=== PATIENT | male | born 1950 | race Caucasian/White ===

== ENCOUNTER 2024-08-03 23:15 | Inpatient (IN) | payer MEDICARE, SELFPAY ==
[2024-08-03 16:10] LABS: % Basophils 0.5 % (0-2); % Eosinophils 2.1 % (0-6); % Immature Granulocytes 0.7 % (0-0.5); % Lymphocytes 18.6 % (20.5-51.1); % Neutrophils 65.1 % (42.2-75.2); Absolute Eosinophils 0.1 10^3/uL (0-0.7); Absolute Lymphocytes 0.8 10^3/uL (1.2-3.4); Absolute Monocytes 0.6 10^3/uL (0.1-0.6); Absolute Neutrophils 2.8 10^3/uL (1.4-6.5); Hematocrit 36.2 % (39.0-52.0); Hemoglobin 11.6 g/dL (13.0-18.0); Mean Corpuscular Hgb 29.5 pg (27.0-31.0); Mean Corpuscular Volume 92.1 fL (80.0-94.0); Mean Platelet Volume 10.6 fL (7.4-10.4); Nucleated Red Blood Cells % 0 % (-); Platelet Count 140 10^3/uL (130-400); Red Blood Cell Count 3.93 10^6/uL (4.70-6.10); Red Cell Dist. Width 17.8 % (11.5-14.5); White Blood Cell Count 4.2 10^3/uL (4.8-10.8)
[2024-08-03 16:21] LABS: ALT (SGPT) 65 U/L (0-50); AST (SGOT) 72 U/L (17-59); Albumin 3.5 g/dl (3.5-5.0); Alkaline Phosphatase 67 U/L (38-126); Blood Urea Nitrogen 20 mg/dl (9-20); Carbon Dioxide 27 mmol/L (22-30); Chloride 107 mmol/L (98-107); Glucose 148 mg/dl (70-99); Potassium 4.5 mmol/L (3.5-5.1); Sodium 137 mmol/L (135-145); Total Bilirubin 1.5 mg/dl (0.2-1.3); Total Protein 6.4 g/dl (6.3-8.2); eGFR > 60.00
[2024-08-03 16:22] LABS: COVID-19 Antigen Negative (Negative)
[2024-08-03 17:57] VITALS: BMI 27.4
[2024-08-03 18:40] LABS: D-Dimer 1.19 ug/mlFEU (0.00-0.50)
[2024-08-03 18:59] LABS: Troponin I 0.023 ng/ml
--- NOTE | 2024-08-03 20:12 | ED.GENMED ---
History of Present Illness
<Herb Alejo, DO - Last Filed: 08/04/24 08:18>
General
Chief Complaint: Cough
Source: patient and caregivers homecare
Exam Limitations: none
Time Seen by Provider: 08/03/24 17:53
Nursing documentation reviewed up to this point in time: agreed with
History of Present Illness
History of Present Illness:
74-year-old male presents emergency department due to shortness of breath and cough. He was recently in [place], and prior to the trip he was diagnosed with a DVT and started on Eliquis 5 mg twice daily.
Past History
<Herb Alejo, DO - Last Filed: 08/04/24 08:18>
Past History
ED Past Medical History: CAD, NIDDM, Valvular disease (aortic stenosis) and Other (dvt)
ED Past Surgical History: Cardiac and Orthopedic (right achilles)
Social History
Tobacco: Non-smoker
Alcohol: None
Drug: None
Review of Systems
<Herb Alejo, DO - Last Filed: 08/04/24 08:18>
Review of Systems
Allergies reviewed?: Yes
All Other Systems: Not applicable
Constitutional: Reports no symptoms
EENT: Reports no symptoms
Respiratory: Reports cough and trouble breathing
Cardiac: Reports no symptoms
ABD/GI: Reports no symptoms
: Reports no symptoms
Musculoskeletal: Reports no symptoms
Skin: Reports no symptoms
Neurological: Reports no symptoms
Endocrine: Reports no symptoms
Hematologic/Lymphatic: Reports no symptoms
Psychiatric: Reports no symptoms
Phy Exam
<Herb Alejo, DO - Last Filed: 08/04/24 08:18>
Physical Exam
Physical Exam:
Physical Exam
General: no apparent distress, not acutely ill
Neck: supple. no meningeal signs. normal posterior pharynx
Heart: s1/s2 regular rate and rhythm, no murmur. equal radial
pulses.
HEENT: Pupils equal round reactive to light, EOMI
Lungs: no acute respiratory distress. clear bilaterally, intermittent cough
Abdomen: normal bowel sounds. not tender. no CVAT
Neuro: alert and oriented. no focal neurological deficits cranial nerves II through XII intact
Skin: no rash
Psychiatric: well kept. interactive and cooperative
Extremities: no edema. no calf tenderness. negative homans. good distal pulses
Scores
<Herb Alejo, DO - Last Filed: 08/04/24 08:18>
Heart Failure Risk
Heart Failure Risk Score: Yes
History of Stroke or TIA: No
History of intubation for respiratory distress: No
Heart rate on ED arrival >/= 110: No
SaO2 <90% on arrival on room air: No
HR >/=110 during 3min walk test (or too ill to perform test): No
ECG has acute ischemic changes: No
Urea >/=12mmol/L (BUN 33.6mg/dL): No
Serum CO2>/=35mmol/L: No
Troponin I or T elevated to RI Level (0.4mg/dL): No
NT-proBNP >/=5,000ng/L (5,000pg/ml): No
HF Risk Score: 0
Admission Status: LOW RISK 2.8% Consider discharge to home with f/u visit to PCP/Ingredient Scaler Helper
Course
<Herb Alejo, DO - Last Filed: 08/04/24 08:18>
Orders/Labs/Results
Orders:
Orders
08/03/24 Dinner
Cholesterol Lowering
At Your Request: Full Participation
Cholesterol Lowering: Sodium, 2 Gram
08/03/24 15:48
CR Chest - 2 Views Urgent
Comment:
Reason For Exam: cough
08/03/24 15:57
CMP [Comprehensive Metabolic Panel] Urgent
COVID-19 Antigen Urgent
Source: Nasal Swab
Complete Blood Count/With Diff Urgent
Influenza A+B Rapid Molecular Urgent
TARYN Source: Nasal Swab
Specimen Description:
08/03/24 18:09
CT Chest PE Study Urgent
Comment:
Reason For Exam: short of breath, recent dvt dx
08/03/24 18:15
D-Dimer Urgent
NT-proBNP Urgent
Comment: ADD ON
Troponin I Urgent
08/03/24 20:17
Electrocardiogram (*1) Urgent
Reason for Study: Chest Pain
EKG- Treatment ONCE
08/03/24 21:21
Troponin I Urgent
08/03/24 22:58
Admit/Transfer Patient As Directed
Co-Sign Provider:
Level of Care: Inpatient admission
Assign to:: Telemetry
Physician / Group: Melba Silva
Diagnosis: acute heart failure, right pleural effusion
Reason for Telemetry: Acute Heart Failure
Date to Stop Telemetry: 08/06/24
Time to Stop Telemetry: 11:00
Reason for Hospitalization: acute heart failure, right pleural effusion
Expected length of stay greater than two midnights?: Yes
ELOS- Estimated Length of Stay in days: 3
I certify the patient meets the requirements for IP care: Yes
PRN Pain Medication Management As Directed
May give lesser potent ordered pain med per pt: Yes
preference::
Protocol:: Medication orders for pain may be administered in a
manner that supports deferring to patient preference
when the pt is:
- Requesting an ordered lesser potent pain medication.
Least to most potent pain medications are defined
as: acetaminophen < NSAID < tramadol < opioids
(morphine, oxycodone, hydromorphone).
- Requesting a lesser dose of the same medication IF
ORDERED.
- Requesting a less intrusive route of administration
if both routes are prescribed by the provider (PO <
IV).
08/03/24 22:59
Code Status As Directed
Resuscitation Status: Full Code
08/03/24 23:01
Furosemide [Lasix] 40 mg IV NOW STA
08/03/24 23:58
Albuterol [ProAIR HFA INHALER] 2 puff INH R Q6HPRN PRN
08/03/24 23:58
CARDIOLOGY CONSULT Routine
Consulting Provider: Indio Gomez
Was physician already notified: No
Reason for consult: HF
Consult Notification Routine
Specialty to Notify: Cardiology
Consult Notification Routine
Specialty to Notify: IRAD (Interventional Radiology)
HF DIETARY CONSULT Routine
HF EDUCATOR CONSULT Routine
Comment:
IRAD CONSULT Routine
Consulting Provider: Topher Rossi
Was physician already notified: No
Reason for Consult/Procedure: right plureal effusion
Acknowledgement that appropriate orders are entered: Yes
Acid Fast Culture & Smear Routine
TARYN Source: Pleural Fluid
Specimen Description:
Comment: post procedure
Body Fluid Amylase Routine
Fluid Source: Pleural
Body Fluid Cell Count Routine
What is the Body Fluid: pleural fluid
Comment: post procedure
Body Fluid Glucose Routine
Fluid Source: Pleural
Body Fluid LDH Routine
Fluid Source: Pleural
Body Fluid Protein Routine
Fluid Source: Pleural
Body Fluid Triglycerides Routine
Fluid Source: Pleural
Body Fluid pH Routine
Fluid Source: Pleural
Fluid Culture with Gram Stain Routine
TARYN Source: Pleural Fluid
Specimen Description:
Comment: post procedure
Fungus Culture Routine
TARYN Source: Pleural Fluid
Specimen Description:
Fungus Smear Routine
TARYN Source: Pleural Fluid
Specimen Description:
Gram Stain Routine
TARYN Source: Pleural Fluid
Specimen Description:
Comment: POST PROCEDURE
Activity As Directed
Activity Level: Out of Bed-Early Mobility
Intake/ Output As Directed
Frequency: Per unit guidelines
Patient Education As Directed
Type: CHF folder
Comment: give on admission. Document in Interdisciplinary Education record
Sleep Apnea Assessment by RN As Directed
Comment:
Physician Instructions:
Vital Signs As Directed
Frequency: Other
Additional Instructions:: Q12 or per unit guidelines if more frequent.
Weight As Directed
Frequency: Daily
Type of Scale: Standing Scale
Comment: Daily morning weight. If unable to stand, use balanced bed scale.
Weight As Directed
Frequency: Once
Type of Scale: Standing Scale
Comment: Upon Admission. If unable to stand, use balanced bed scale.
IRAD Cytology Routine
Source: Pleural Fluid, Right
Clinical Impression: HF, significant weightloss
Pulse Ox/cont/shift [RESP] Routine
Quantity: 1
Special Instructions: Daily pulse oximetry at rest. If greater than 92% at rest also obtain pulse oximetry
while ambulating as tolerated.
DX Deep Vein Thrombosis Video Routine
08/04/24 06:00
Echo 2D MMode Color/Doppler IN AM
Reason for Study: heart failure
Basic Metabolic Panel IN AM
Cardiovascular Evaluation IN AM
Complete Blood Count/No Diff IN AM
08/04/24 08:00
Apixaban [Eliquis] 5 mg PO BID
Citalopram [Celexa] 30 mg PO DAILY
Ezetimibe [Zetia] 10 mg PO DAILY
Furosemide [Lasix] 40 mg IV DAILY
Memantine HCl [Namenda] 10 mg PO BID
Metoprolol Xl [Toprol Xl] 25 mg PO DAILY
Multivitamin [Theragran] 1 tablet PO DAILY
Potassium Chloride [KCl] 20 meq PO DAILY
Rosuvastatin Calcium [Crestor] 20 mg PO DAILY
08/04/24 18:00
Enoxaparin Sodium [Lovenox] 40 mg SC QPM
08/05/24 06:00
Basic Metabolic Panel IN AM
08/06/24 06:00
Basic Metabolic Panel IN AM
08/06/24 11:00
DC Protocol for Telemetry ONCE
Abnormal Lab Results
08/03/24 08/03/24
15:57 18:15
WBC 4.2 L 10^3/uL
(4.8-10.8)
RBC 3.93 L 10^6/uL
(4.70-6.10)
Hgb 11.6 L g/dL
(13.0-18.0)
Hct 36.2 L %
(39.0-52.0)
MCHC 32.0 L g/dL
(33.0-37.0)
RDW 17.8 H %
(11.5-14.5)
MPV 10.6 H fL
(7.4-10.4)
Absolute Lymphs (auto) 0.8 L 10^3/uL
(1.2-3.4)
Immature Gran % 0.7 H %
(0-0.5)
Lymphocytes % 18.6 L %
(20.5-51.1)
Monocytes % 13.0 H %
(1.7-9.3)
D-Dimer 1.19 H ug/mlFEU
(0.00-0.50)
Glucose 148 H mg/dl
(70-99)
Total Bilirubin 1.5 H mg/dl
(0.2-1.3)
AST 72 H U/L
(17-59)
ALT 65 H U/L
(0-50)
08/03/24 15:57
08/03/24 15:57
Vital Signs
Initial and Last Documented VS:
Initial Vital Signs
Pulse Ox
96
08/03/24 18:00
Last Documented Vital Signs
Temp Pulse Resp BP Pulse Ox
97.9 F 65 18 129/71 96
08/04/24 07:29 08/04/24 07:29 08/04/24 07:29 08/04/24 07:29 08/04/24 07:29
<Alexis Ruiz, DO - Last Filed: 08/03/24 21:42>
Orders/Labs/Results
Orders:
Orders
08/03/24 Dinner
Cholesterol Lowering
At Your Request: Full Participation
Cholesterol Lowering: Sodium, 2 Gram
08/03/24 15:48
CR Chest - 2 Views Urgent
Comment:
Reason For Exam: cough
08/03/24 15:57
CMP [Comprehensive Metabolic Panel] Urgent
COVID-19 Antigen Urgent
Source: Nasal Swab
Complete Blood Count/With Diff Urgent
Influenza A+B Rapid Molecular Urgent
TARYN Source: Nasal Swab
Specimen Description:
08/03/24 18:09
CT Chest PE Study Urgent
Comment:
Reason For Exam: short of breath, recent dvt dx
08/03/24 18:15
D-Dimer Urgent
NT-proBNP Urgent
Comment: ADD ON
Troponin I Urgent
08/03/24 20:17
Electrocardiogram (*1) Urgent
Reason for Study: Chest Pain
EKG- Treatment ONCE
08/03/24 21:21
Troponin I Urgent
08/03/24 22:58
Admit/Transfer Patient As Directed
Co-Sign Provider:
Level of Care: Inpatient admission
Assign to:: Telemetry
Physician / Group: Melba Silva
Diagnosis: acute heart failure, right pleural effusion
Reason for Telemetry: Acute Heart Failure
Date to Stop Telemetry: 08/06/24
Time to Stop Telemetry: 11:00
Reason for Hospitalization: acute heart failure, right pleural effusion
Expected length of stay greater than two midnights?: Yes
ELOS- Estimated Length of Stay in days: 3
I certify the patient meets the requirements for IP care: Yes
PRN Pain Medication Management As Directed
May give lesser potent ordered pain med per pt: Yes
preference::
Protocol:: Medication orders for pain may be administered in a
manner that supports deferring to patient preference
when the pt is:
- Requesting an ordered lesser potent pain medication.
Least to most potent pain medications are defined
as: acetaminophen < NSAID < tramadol < opioids
(morphine, oxycodone, hydromorphone).
- Requesting a lesser dose of the same medication IF
ORDERED.
- Requesting a less intrusive route of administration
if both routes are prescribed by the provider (PO <
IV).
08/03/24 22:59
Code Status As Directed
Resuscitation Status: Full Code
08/03/24 23:01
Furosemide [Lasix] 40 mg IV NOW STA
08/03/24 23:58
Albuterol [ProAIR HFA INHALER] 2 puff INH R Q6HPRN PRN
08/03/24 23:58
CARDIOLOGY CONSULT Routine
Consulting Provider: Indio Gomez
Was physician already notified: No
Reason for consult: HF
Consult Notification Routine
Specialty to Notify: Cardiology
Consult Notification Routine
Specialty to Notify: IRAD (Interventional Radiology)
HF DIETARY CONSULT Routine
HF EDUCATOR CONSULT Routine
Comment:
IRAD CONSULT Routine
Consulting Provider: Topher Rossi
Was physician already notified: No
Reason for Consult/Procedure: right plureal effusion
Acknowledgement that appropriate orders are entered: Yes
Acid Fast Culture & Smear Routine
TARYN Source: Pleural Fluid
Specimen Description:
Comment: post procedure
Body Fluid Amylase Routine
Fluid Source: Pleural
Body Fluid Cell Count Routine
What is the Body Fluid: pleural fluid
Comment: post procedure
Body Fluid Glucose Routine
Fluid Source: Pleural
Body Fluid LDH Routine
Fluid Source: Pleural
Body Fluid Protein Routine
Fluid Source: Pleural
Body Fluid Triglycerides Routine
Fluid Source: Pleural
Body Fluid pH Routine
Fluid Source: Pleural
Fluid Culture with Gram Stain Routine
TARYN Source: Pleural Fluid
Specimen Description:
Comment: post procedure
Fungus Culture Routine
TARYN Source: Pleural Fluid
Specimen Description:
Fungus Smear Routine
TARYN Source: Pleural Fluid
Specimen Description:
Gram Stain Routine
TARYN Source: Pleural Fluid
Specimen Description:
Comment: POST PROCEDURE
Activity As Directed
Activity Level: Out of Bed-Early Mobility
Intake/ Output As Directed
Frequency: Per unit guidelines
Patient Education As Directed
Type: CHF folder
Comment: give on admission. Document in Interdisciplinary Education record
Sleep Apnea Assessment by RN As Directed
Comment:
Physician Instructions:
Vital Signs As Directed
Frequency: Other
Additional Instructions:: Q12 or per unit guidelines if more frequent.
Weight As Directed
Frequency: Daily
Type of Scale: Standing Scale
Comment: Daily morning weight. If unable to stand, use balanced bed scale.
Weight As Directed
Frequency: Once
Type of Scale: Standing Scale
Comment: Upon Admission. If unable to stand, use balanced bed scale.
IRAD Cytology Routine
Source: Pleural Fluid, Right
Clinical Impression: HF, significant weightloss
Pulse Ox/cont/shift [RESP] Routine
Quantity: 1
Special Instructions: Daily pulse oximetry at rest. If greater than 92% at rest also obtain pulse oximetry
while ambulating as tolerated.
DX Deep Vein Thrombosis Video Routine
08/04/24 06:00
Echo 2D MMode Color/Doppler IN AM
Reason for Study: heart failure
Basic Metabolic Panel IN AM
Cardiovascular Evaluation IN AM
Complete Blood Count/No Diff IN AM
08/04/24 08:00
Apixaban [Eliquis] 5 mg PO BID
Citalopram [Celexa] 30 mg PO DAILY
Ezetimibe [Zetia] 10 mg PO DAILY
Furosemide [Lasix] 40 mg IV DAILY
Memantine HCl [Namenda] 10 mg PO BID
Metoprolol Xl [Toprol Xl] 25 mg PO DAILY
Multivitamin [Theragran] 1 tablet PO DAILY
Potassium Chloride [KCl] 20 meq PO DAILY
Rosuvastatin Calcium [Crestor] 20 mg PO DAILY
08/04/24 18:00
Enoxaparin Sodium [Lovenox] 40 mg SC QPM
08/05/24 06:00
Basic Metabolic Panel IN AM
08/06/24 06:00
Basic Metabolic Panel IN AM
08/06/24 11:00
DC Protocol for Telemetry ONCE
Abnormal Lab Results
08/03/24 08/03/24
15:57 18:15
WBC 4.2 L 10^3/uL
(4.8-10.8)
RBC 3.93 L 10^6/uL
(4.70-6.10)
Hgb 11.6 L g/dL
(13.0-18.0)
Hct 36.2 L %
(39.0-52.0)
MCHC 32.0 L g/dL
(33.0-37.0)
RDW 17.8 H %
(11.5-14.5)
MPV 10.6 H fL
(7.4-10.4)
Absolute Lymphs (auto) 0.8 L 10^3/uL
(1.2-3.4)
Immature Gran % 0.7 H %
(0-0.5)
Lymphocytes % 18.6 L %
(20.5-51.1)
Monocytes % 13.0 H %
(1.7-9.3)
D-Dimer 1.19 H ug/mlFEU
(0.00-0.50)
Glucose 148 H mg/dl
(70-99)
Total Bilirubin 1.5 H mg/dl
(0.2-1.3)
AST 72 H U/L
(17-59)
ALT 65 H U/L
(0-50)
08/03/24 15:57
08/03/24 15:57
Vital Signs
Initial and Last Documented VS:
Initial Vital Signs
Pulse Ox
96
08/03/24 18:00
Last Documented Vital Signs
Temp Pulse Resp BP Pulse Ox
97.9 F 65 18 129/71 96
08/04/24 07:29 08/04/24 07:29 08/04/24 07:29 08/04/24 07:29 08/04/24 07:29
<Herb Alejo, DO - Last Filed: 08/04/24 08:18>
MDM/Problems Addressed
Differential Diagnosis Includes:
PE, pneumonia
MDM/Problems Addressed:
74-year-old male with pleural effusion, concern for possible malignancy versus CHF. Admit to hospitalist for further evaluation.
Chronic conditions affecting care: CAD
Acute Exacerbation and/or Progression of Chronic Illness: CAD and Cardiomyopathy
<Herb Alejo, DO - Last Filed: 08/04/24 08:18>
*Radiology
Radiology exam reviewed: radiology read reviewed (Chest x-ray no acute findings, CT chest no signs of PE, right pleural effusion)
*Pulse Oximetry
Patient hypoxic: no
*EKG
Interpreted by ED Provider?: Yes
EKG Intrepretation Date: 08/03/24
EKG Intrepretation Time: 20:26
Interpretation: abnormal
Comparison EKG: changes noted
Heart Rate: 71
Rate: normal
Rhythm: sinus
[place]: normal axis
Interval: normal interval
QRS Pattern: right bundle branch block
Ischemia: T-wave inversion
<Alexis Ruiz, DO - Last Filed: 08/03/24 21:42>
*Critical Care Note
Total Time (30-74mins, 75-104mins- exclusive of procedures): Not Applicable
<lAexis Ruiz, DO - Last Filed: 08/03/24 21:42>
Update Note
Update Note:
9:40 PM the care of patient was initially transitioned pending CT PE rule out. CT negative for PE but there is a moderate pleural effusion. Based on his random DVT and now with pleural effusion raises concern for possible malignancy. Patient had
recent negative cancer workup per after he was found to have a 40 pound weight loss. Will admit for cardiac evaluation and echo
ED Attending Note
<Herb Alejo, DO - Last Filed: 08/04/24 08:18>
-
Portions of this chart may have been created with voice recognition software.� Occasional wrong word or��sound alike� substitutions may have occurred due to the inherent limitations of voice recognition software.
Discharge Plan
Departure
Patient Disposition: Admit
Date of Disposition: 08/03/24
Time of Disposition: 21:42
Admit to: Med/Surg
Presentation/result/management discussed w/ accepting MD/DO: Hospitalist
Discharge Problem:
Pleural effusion
Interventions
Interventions:
*Risk Screen - Suicide Last Done: 08/03/24 15:41
*General Assessment Last Done: 08/03/24 15:41
*Neglect/Abuse Screening Last Done: 08/03/24 17:56
*ED- Fall Risk Assessment Last Done: 08/03/24 17:56
*Nursing Disposition Last Done: 08/03/24 23:51
ED- Pulmonary Assessment Last Done: 08/03/24 22:58
Discharge Date and Time
Discharge Date/Time: 08/03/24 23:53
[2024-08-03 21:18] VITALS: BP 119/55
[2024-08-03 21:25] LABS: NT-proBNP 4560 pg/ml
--- NOTE | 2024-08-03 21:43 | HPS.HSE ---
Family Physician
-
Family Physician: NOT KNOW UNKNOWN - PT DOES
Chief Complaint
-
shortness of breath/cough
History of Present Illness
Patient is a 74-year-old male with past medical history significant for CAD, NIDDM, aortic stenosis, anoxic brain injury s/p cardiac arrest and Hx DVT who presented to [facility] ED for evaluation of shortness of breath and cough. Patient
along with private nurse at bedside to assist with HPI. Patient has nurse on-call 02/12 related to previous anoxic brain injury, she has been is private nurse for 15 years and sustained the anoxic brain injury 17 years ago following cardiac arrest.
Patient sustained cardiac arrest following cardiac cath with stent placement. It is reported that patient started with a dry hacking cough around July 19, was seen by his primary care who cleared him for a trip to [facility]. Prior to departure he was
also diagnosed with a DVT and started on Eliquis on July 21. Patient departed for [facility] on July 26 and dry hacking cough became progressively worse and he was now having associated exertional shortness of breath. Nurse, Jojo, reports that
she did notice LLE edema early in July that has been intermittent since. With worsening cough and new onset exertional shortness of breath patient returned home early today, saw primary care provider who referred patient to ED for workup to rule
out PE. Patient denies any dizziness, confusion, fevers, chills, nausea, vomiting, constipation, diarrhea or urinary symptoms.
Medical History
Past Medical History
Past Medical History: Reports Other
Additional Past Medical History:
CAD
NIDDM
benign hypertension
depression/anxiety
aortic stenosis
Hx anoxic brain injury s/p cardiac arrest 17 years ago
Hx DVT
Past Surgical History: Reports Other
Additional Past Surgical History:
Right Achilles repair
Cardiac cath
Social History
Tobacco: Non-smoker
Employment: Disabled
Family History
Family History: Other (Father: CAD, Sister x2: Breast cancer; Brother: DM,TIA, carotid stenosis )
Allergies / Home Medications
Allergies reflects when Allergies were last updated in [employer].
Home Medications with original date entered in [employer]
Allergy/Medication List:
Allergies
Allergy/AdvReac Type Severity Reaction Status Date / Time
Ndykqrd-WNQ-DdW Reductase Allergy CAN TAKE Verified 08/03/24 15:42
Inhibitor VYTORIN
[Aqxhjev-Hic-Ocg Reductase
Inhibitor]
Home Medications
albuterol sulfate 90 mcg/actuation aerosol inhaler 2 puff inhalation R Q6HPRN PRN sob 08/03/24
apixaban 5 mg tablet (Eliquis) 5 mg PO BID 08/03/24
citalopram 20 mg tablet 30 mg PO DAILY 08/03/24
ezetimibe 10 mg tablet 10 mg PO DAILY 08/03/24
furosemide 20 mg tablet 20 mg PO DAILYPRN PRN swelling 08/03/24
memantine 10 mg tablet 10 mg PO BID 08/03/24
metoprolol succinate 25 mg tablet,extended release 24 hr 25 mg PO DAILY 08/03/24
potassium chloride 20 mEq tablet,extended release(part/cryst) 20 meq PO DAILY 08/03/24
rosuvastatin 20 mg tablet 20 mg PO DAILY 08/03/24
therapeutic multivitamin 1 tab PO DAILY 08/03/24
Review of Systems
-
History Source: Patient and Other (friend and private nurse )
Constitutional: Reports No Symptoms
EENT: Reports No Symptoms
Respiratory: Reports Cough and Trouble Breathing (exertional shortness of breath )
Cardiac: Reports No Symptoms
Abdomen/GI: Reports No Symptoms
: Reports No Symptoms
Musculoskeletal: Reports No Symptoms
Skin: Reports No Symptoms
Neurological: Reports No Symptoms
Endocrine: Reports No Symptoms
Hematologic/Lymphatic: Reports No Symptoms
Psych: Reports No Symptoms
Physical Exam
Vital Signs
Vital Signs
Pulse Resp BP Pulse Ox
70 27 119/55 98
08/03/24 21:19 08/03/24 21:19 08/03/24 21:18 08/03/24 21:19
Physical Exam
General: Well Developed, Well Nourished, No Apparent Distress, Comfortable, Conversant and Obese
HEENT: NormoCephalic, Moist mucous membranes, Atraumatic, [place] Conjunctivae, Nose Appears Normal and Ears Appear Normal
Respiratory: Clear and Non Labored Respirations
Cardiac: S1/S2, Regular Rhythm and Murmur
Breast: Deferred by me
GI: Soft, Non Tender, Non Distended and Normal Bowel Sounds; No Organomegaly
Rectal: Deferred by Provider
Genito-urinary: Deferred by me
Musculoskeletal: No Clubbing, No Cyanosis and Edema, Left Lower Extremity (trace ankle edema)
Skin: IV/Catheter Site
Neuro: Awake, Alert, AO x 3 and Nonfocal/grossly intact
Psych: Calm and Intact Judgment/Insight
Laboratory Results
-
08/03/24 15:57
08/03/24 15:57
Laboratory Results
Total Bilirubin 1.5 mg/dl (0.2-1.3) H 08/03/24 15:57
AST 72 U/L (17-59) H 08/03/24 15:57
ALT 65 U/L (0-50) H 08/03/24 15:57
Alkaline Phosphatase 67 U/L (38-126) 08/03/24 15:57
Troponin I 0.023 ng/ml 08/03/24 18:15
Data Reviewed
-
Diagnostic Radiology: Report Reviewed by me (CXR: No acute cardiopulmonary process.)
CT Scan: Report Reviewed by me (Chest CT: 1. No evidence of pulmonary embolism. 2. Moderate right pleural effusion.)
Lab Data: Labs Reviewed by me (D-dimer 1.19, Tot Bili 1.5, AST 72, ALT 65, BNP 4560)
Impression/Plan
-
IMPRESSION/PLAN:
#dry cough and exertional shortness of breath
#acute heart failure
#moderate right pleural effusion
CXR: No acute cardiopulmonary process.
Chest CT: 1. No evidence of pulmonary embolism.
2. Moderate right pleural effusion.
- Admit to telemetry
- ECHO in morning
- Consult cardiology
- Consult IR
- Thoracentesis studies
#CAD
s/p multiple stents
- continue rosuvastatin
#NIDDM
Patient recently had medications discontinued as A1c well controlled with diet and exercise
- monitor BMP
#benign hypertension
patient controlled with diet and exercise (previously on Lisinopril)
- continue metoprolol
#Hx DVT
dx July 21, 2024 and started on Eliquis
- continue Eliquis
#anxiety/depression
- continue citalopram
#Hx anoxic brain injury s/p cardiac arrest 17 years ago
- continue ezetimibe and memantine
#aortic stenosis
Code status: full code
DVT prophylaxis: Lovenox sq
[2024-08-03 21:50] LABS: Troponin I 0.022 ng/ml
[2024-08-03 22:00] VITALS: BP 118/61
[2024-08-03 23:00] VITALS: BP 131/74
--- NOTE | 2024-08-03 23:14 | W.PN.UPDATE ---
Update Note
Progress Note Update
This is an addendum to the H&P written by Lisha Vergara on 08/03/2024. Patient seen and examined independently with DIRECTOR OF VETERANS AFFAIRS.
74-year-old male past medical history of CAD, left lower extremity DVT on Eliquis, diabetes, PAD, hypertension, anoxic brain injury s/p cardiac arrest, aortic stenosis, anxiety/depression, hyperlipidemia, presenting with shortness of breath and
nonproductive cough for the past 3 weeks and increased lower extremity edema. He was recently in [place] and prior to the trip he was diagnosed with DVT and started on Eliquis. No fevers or chills. Multiple trips to [place].
He has had 40 pounds weight loss. He reportedly had PET scan malignancy workup by his primary care physician which was negative.
Labs show leukopenia, anemia, mild transaminitis. Troponin of 0.023. Cardiac BNP of 4500. D-dimer 1.19. COVID and influenza negative.
CT PE shows no evidence of pulmonary embolism. Moderate right pleural effusion. EKG shows sinus bradycardia, sinus arrhythmia. Incomplete right bundle branch block.
Patient with acute CHF exacerbation with moderate right pleural effusion. Presentation is concerning for underlying malignancy given weight loss and pulmonary embolism. Will arrange for thoracentesis and check cytology to rule out diagnoses such
as tuberculosis and lung cancer.
[2024-08-03] MEDS: LASIX 40 MG IV (23:41)
[2024-08-03 23:42] VITALS: BP 134/65
[2024-08-04] VITALS (9 sets, daily range): BP systolic 107–141; BP diastolic 58–71; BMI 26.8; BMI 25.7
--- NOTE | 2024-08-04 00:47 | PTCARENOTE ---
in MD note, it states 'check cytology to rule out diagnoses such as tuberculosis and lung cancer'. Pt slotted to go into semi-private, Dr. iSlva asked if pt should be on precautions and in private room. stated that pt does not have fever or
any findings on CT so does not need precautions or private room. Pt admitted to [facility]2 with x1 assist. Pt slightly unsteady on feet. VSS. Pt aaox2, stated year is 2022. Pt slightly forgetful but already ringing ruby appropriately. Bed alarm placed
for safety. Pt urinated 750mls of clear yellow urine into urinal. Pt instructed to call staff and stand at bedside to urinate. Plan of care ongoing.
--- NOTE | 2024-08-04 08:28 | CON.CAR ---
Addendum entered and electronically signed by Erasmo Hernandez MD 08/04/24 12:19:
I saw and examined the patient.
The HEATER ENGINEER HELPER's note was reviewed and I agree with the note.
Comment:
74 yo man with CAD, DM, diabetic LE neuropathy, coronary stenting, MV surgery (patient and his private branch exchange service advisor of more than 10 years do not know any details of his cardiac history or results of cardiac testing), recent DVT, anoxic brain injury (at
time of open heart surgery at [facility]). Has followed with [facility] linux admin for over 10 yrs, PAD (s/p experimental stem cell therapy), and mixed hyperlipidemia. 10 days of cough, [place], and mild LE edema.
Echo with mild LV dysfxn, LVEF 40%, MV repair looks good, AoV abnormal but no significant stenosis regurgitation.
EKG with RBBB/RAD and initially I thought AIVR but echo suggests organized atrial activity and on review P waves are likely present (only seen in lead V1) => NSR with RBBB/LPFB
s/p R thoracentesis 700 ml today
Imp:
Acute onset HF with midrange EF
CAD
S/p MV repair
? AoV intervention
DVT
DM
Mixed hyperlipidemia
Weight loss
- Uncertain etiology, we do not suspect endocarditis but not unreasonable to check blood cultures given MV dz, abnl AoV
Plan:
IV diuresis
Add GDMT now and overtime
Blood cultures (low suspicion for endocarditis)
Records request from his linux admin
Watch telemetry
Original Note:
Consultation
Consultation Request
Date/Time Consultation Requested: 08/03/24 [id number]
Date/Time Consultation Performed: 08/04/24 0815
Requesting Provider: Hollie Jimenez HEATER ENGINEER HELPER
Performing Provider: Chaya SANTOYO for Dr. Hernandez
Reason for Consultation: CHF
Medical History
-
Chief Complaint: cough, SOB
History of Present Illness:
74 y/o male with hx CAD with multiple stents (here LAD 2009), but more recently at [facility] (details unknown), cardiac arrest with anoxic brain injury (details unknown), cardiothoracic surgery (details unknown), DM (off meds), PAD, aortic stenosis,
recently diagnosed LLE DVT now on Eliquis. He gets his care at [facility]. His linux admin is Dr. Kramer- will request records. He has had recent weight loss and anemia and has OP work-up, which has been unremarkable per his private nurse who is
at bedside. He came back early from [facility] yesterday since he was noted to have SOB and dry cough (x [address] scan shows no PE, but he is noted to have a moderate right pleural effusion. We are consulted for CHF. He was recently started on PRN
lasix when he was diagnosed with LE DVT, but has only taken one dose. He is in no distress at the time of my assessment. He denies any CP. EKG shows idioventricular rhythm, similar on telemetry.
Past Medical History
Past Medical History: CAD, NIDDM, Valvular Disease and Other (as above)
Social History
Tobacco: Non-Smoker
Alcohol: None
Living: Other (has private duty nurse)
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
Family History
Family History: CAD (dad CAD)
Allergies / Home Medications
Allergy/AdvReac Type Severity Reaction Status Date / Time
Zxwfobt-NAX-GlY Reductase Allergy CAN TAKE Verified 08/03/24 15:42
Inhibitor VYTORIN
[Mqycxwq-Vfw-Vgc Reductase
Inhibitor]
�Medication �Instructions �Recorded �Confirmed �Type
albuterol sulfate 90 mcg/actuation 2 puff inhalation R Q6HPRN PRN sob 08/03/24 08/03/24 History
aerosol inhaler
apixaban 5 mg tablet (Eliquis) 5 mg PO BID Blood Clot 08/03/24 08/03/24 History
Prevention/Tx
citalopram 20 mg tablet 30 mg PO DAILY Mental 08/03/24 08/03/24 History
Health/Anxiety
ezetimibe 10 mg tablet 10 mg PO HS High Cholesterol 08/03/24 08/03/24 History
furosemide 20 mg tablet 20 mg PO DAILYPRN PRN swelling 08/03/24 08/03/24 History
mecobalamin-levomefolate 1 tab PO DAILY Supplement 08/03/24 08/03/24 History
calcium-pyridoxal phos 2 mg-3
mg-35 mg tablet (Foltanx)
memantine 10 mg tablet 10 mg PO BID Neurological Condition 08/03/24 08/03/24 History
metoprolol succinate 25 mg 25 mg PO DAILY Heart 08/03/24 08/03/24 History
tablet,extended release 24 hr Disease/Condition
potassium chloride 20 mEq 20 meq PO BID Supplement 08/03/24 08/03/24 History
tablet,extended release(part/cryst)
rosuvastatin 20 mg tablet 20 mg PO HS High Cholesterol 08/03/24 08/03/24 History
Review of Systems
-
History Source: Patient and Other (chart, private duty nurse)
All other systems: Negative unless noted
Constitutional: Weight Loss
Respiratory: Cough and Trouble Breathing
Musculoskeletal: Edema
Physical Exam
Vital Signs
Temp Pulse Resp BP Pulse Ox
97.9 F 65 18 129/71 96
08/04/24 07:29 08/04/24 07:29 08/04/24 07:29 08/04/24 07:29 08/04/24 07:29
Lab Results
Troponin I 0.022 ng/ml 08/03/24 21:21
Xyz-K-Woxmjgnxxui Pept 4560 pg/ml 08/03/24 18:15
Physical Exam
General: Well Developed, Well Nourished and No Apparent Distress
HEENT: Normocephalic and Anicteric
Respiratory: Crackles (right base)
Cardiac: Regular Rhythm and Murmur (IV/ systolic murmur)
Musculoskeletal: No Edema
Skin: Warm and Dry
Neuro: Awake and Alert
Psych: Calm
Impression / Plan
-
SOB/cough:
-flu and covid negative. Recent international travel- defer any other infectious w/u to primary team.
-pleural effusion on right side is noted- plan is for thoracentesis with testing
-Also with evidence for acute HF (type unknown) with BNP 4560 and pleural effusion as above - monitor response to IV lasix, which requires intensive monitoring. labs this AM are pending. Does not appear massively volume overloaded on exam.
Abnormal EKG/rhythm:
-idioventricular rhythm? Will review with Dr. Hernandez
CAD with hx stenting:
-stable without any CP
-trops unremarkable
-on Eliquis, statin, BB
Aortic stenosis (mild on cath 2009):
-update echo
-obtain records from linux admin
LLE DVT:
-on Eliquis
-no PE on CT scan
Hx cardiac arrest per chart, with anoxic brain injury:
-details unknown
DM:
-not presently on meds
Hx CT surgery:
-details unknown, records requested
Data Reviewed
-
EKG: Tracing Personally Visualized and interpreted (Accelerated idioventricular rhythm, RBBB)
Radiology: Report Reviewed by me (CXR: No acute cardiopulmonary process.)
CT Scan: Report Reviewed by me ( No evidence of pulmonary embolism. 2. Moderate right pleural effusion.)
Medical Tests (Nuc Med, Echo etc): Other (echo ordered and pending)
Labs: Labs Reviewed by me
[2024-08-04] MEDS: CRESTOR 20 MG PO (08:47)
[2024-08-04] MEDS: LASIX 40 MG IV (08:47)
[2024-08-04] MEDS: CELEXA 30 MG PO (08:48)
[2024-08-04] MEDS: KCL 20 MEQ PO (08:48)
[2024-08-04] MEDS: THERAGRAN 1 TABLET PO (08:48)
[2024-08-04] MEDS: ELIQUIS 5 MG PO ×2 (08:48→21:02)
[2024-08-04] MEDS: NAMENDA 10 MG PO ×2 (08:48→21:02)
[2024-08-04] MEDS: ZETIA 10 MG PO (08:48)
[2024-08-04 09:33] LABS: Hematocrit 37.4 % (39.0-52.0); Hemoglobin 12.1 g/dL (13.0-18.0); Mean Corp Hgb Conc. 32.4 g/dL (33.0-37.0); Mean Corpuscular Hgb 29.4 pg (27.0-31.0); Mean Corpuscular Volume 90.8 fL (80.0-94.0); Mean Platelet Volume 13.4 fL (7.4-10.4); Platelet Count 170 10^3/uL (130-400); Red Blood Cell Count 4.12 10^6/uL (4.70-6.10); Red Cell Dist. Width 17.8 % (11.5-14.5); White Blood Cell Count 3.4 10^3/uL (4.8-10.8)
[2024-08-04 10:09] LABS: Body Fluid pH 7.48
[2024-08-04] MEDS: TOPROL XL 25 MG PO (10:09)
[2024-08-04 10:22] LABS: Body Fluid Amylase < 30 U/L; Body Fluid Glucose 111 mg/dl; Body Fluid LDH 213 U/L; Body Fluid Protein 2.8 g/dl; Body Fluid Triglycerides < 30 mg/dl
[2024-08-04 10:34] LABS: Blood Urea Nitrogen 16 mg/dl (9-20); Calcium 9.1 mg/dl (8.4-10.2); Carbon Dioxide 29 mmol/L (22-30); Chloride 105 mmol/L (98-107); Estimated Creatinine Clearance 67 ml/min; Glucose 99 mg/dl (70-99); HDL Cholesterol 33 mg/dl; LDL Cholesterol, Calculated 62 mg/dl; Potassium 3.8 mmol/L (3.5-5.1); Sodium 140 mmol/L (135-145); Total Cholesterol 108 mg/dl (50-199); Triglyceride 69 mg/dl (10-149); Very Low Density Lipoprotein 13 mg/dl (0-30); eGFR > 60.00
[2024-08-04 10:43] LABS: Body Fluid Mononuclear 94.9 %; Body Fluid Polymorphonuclear 5.1 %
[2024-08-04 10:53] LABS: Body Fluid WBC 1244 /CUMM
[2024-08-04 10:55] LABS: Body Fluid Second Tech AMA
--- NOTE | 2024-08-04 13:05 | W.PN.HOSP.TC ---
Today's Communication/Plan
-
IV lasix
await culture data
GDMT
Cards recs
Assessment / Plan
Assessment / Plan
#Acute HFrEF
-ECHO wtih EF of 40%. S/p MV repair with mild to moderate MR and a mild gradient of 4 mmHg across the MV.
-await OP records
-Continue with IV Lasix. Requires invasive monitoring. Strict I's and O's. Daily weights.
-Having good urinary output
-Cardiology following.
# Right-sided pleural effusion
-Lymphocytic predominant. Glucose normal. TG normal. pH 7.5. Amylase normal. Await for further cytology and culture data bacterial/fungal.
-Exudative. However, with heart failure possibility of pseudo-exudative. Check PRocal and LDH.
-If with productive cough check sputum sample
-If procal elevated may need to treat as possibility of parapneumonic effusion
#Recent weight loss
-blood culture in lab-low suspicious of infection
-Nutrition eval
-OP further work up. CT chest negative for lesion.
#CAD
s/p multiple stents
- continue rosuvastatin
#NIDDM
Patient recently had medications discontinued as A1c well controlled with diet and exercise
- monitor BMP
#benign hypertension
patient controlled with diet and exercise (previously on Lisinopril)
- continue metoprolol
#Hx DVT
dx July 21, 2024 and started on Eliquis
- continue Eliquis
#anxiety/depression
- continue citalopram
#Hx anoxic brain injury s/p cardiac arrest 17 years ago
- continue ezetimibe and memantine
#Chronic thrombocytopenia
-trend platelet
#aortic stenosis
Code status: full code
DVT prophylaxis: Lovenox sq
Anticipated Discharge: > 48 hours
Subjective/Interval History
-
Date of Service: August 04, 2024
states of dry cough post thoracentesis
feeling better
sob has improved
Objective Data
-
Labs:
Laboratory Results
08/04/24
07:07
WBC 3.4 L
Hgb 12.1 L
Hct 37.4 L
Plt Count 170 D
Sodium 140
Potassium 3.8
Chloride 105
Carbon Dioxide 29
BUN 16
Creatinine 1.0
Glucose 99
Calcium 9.1
Vital Signs:
Vital Signs
Temp Pulse Resp BP Pulse Ox
97.9 F 69 16 118/58 99
08/04/24 12:06 08/04/24 12:06 08/04/24 12:06 08/04/24 12:06 08/04/24 12:06
I&O
08/03/24 08/04/24 08/05/24
06:59 06:59 06:59
Intake Total 240 / 240
Output Total 3875 / 3875 950 / 950
Balance -3635 / -3635 -950 / -950
Physical Exam
-
General: Well Developed and No Apparent Distress
HEENT: Normocephalic, Atraumatic and Moist Mucous Membranes
Respiratory: Decreased Breath Sounds
Cardiac: Regular Rhythm and S1/S2; Negative Murmur, Rub or Gallop
GI: Soft, Nontender, Nondistended and Normal Bowel Sounds; Negative Organomegaly
Rectal: Deferred by Provider
Musculoskeletal: No Clubbing, No Cyanosis and No Edema
Skin: Negative Rash
Neuro: Awake and Nonfocal/Grossly Intact
Psych: Calm
Data Reviewed
-
Total Time Spent with Patient (in minutes): 55
--- NOTE | 2024-08-04 13:07 | CM ---
Met with patient to obtain information for assessment. Patient deferred to his nurse who was with him at bedside. She stated that patient lives alone with caregivers and RNs in a two story house with 3 steps to enter. He needs assistance with his
bathing and dressing as well as personal care and all other ADLs. They cook, clean, do laundry and goldbeater. They drive patient to his appointments. Patient has no DME. He has never has been to SNF.
Patient has a prescription plan and uses, [facility].
His PCP is not listed.
Received consult to check prices on the following: Entresto BID, Farxiga 10mg, Jardiance 10mg. Placed a call to [facility] an spoke with a pharmicist named, El who stated that he will duron out costs and return call to . Will f/u if no
return call.
Plan: Case management will continue to follow and assist with discharge planning. Home with private duty nurses and caregivers.
[2024-08-04 14:17] LABS: Procalcitonin < 0.05 ng/ml (0.0-0.25)
[2024-08-04 14:31] LABS: LDH 616 U/L (120-246)
[2024-08-05] VITALS (7 sets, daily range): BP systolic 93–132; BP diastolic 43–63; PULSE 67; O2SAT 98; BMI 25.7; BMI 25.5
[2024-08-05 07:24] LABS: Blood Urea Nitrogen 19 mg/dl (9-20); Calcium 9.2 mg/dl (8.4-10.2); Carbon Dioxide 31 mmol/L (22-30); Chloride 103 mmol/L (98-107); Estimated Creatinine Clearance 67 ml/min; Glucose 125 mg/dl (70-99); Sodium 139 mmol/L (135-145); eGFR > 60.00
[2024-08-05] MEDS: ALDACTONE 25 MG PO (09:26)
[2024-08-05] MEDS: ELIQUIS 5 MG PO ×2 (09:27→21:11)
[2024-08-05] MEDS: CRESTOR 20 MG PO (09:27)
[2024-08-05] MEDS: FARXIGA 10 MG PO (09:28)
[2024-08-05] MEDS: LASIX 40 MG IV (09:28)
[2024-08-05] MEDS: THERAGRAN 1 TABLET PO (09:30)
[2024-08-05] MEDS: ZETIA 10 MG PO (09:30)
[2024-08-05] MEDS: TOPROL XL 25 MG PO (09:30)
[2024-08-05] MEDS: NAMENDA 10 MG PO ×2 (09:31→21:11)
[2024-08-05] MEDS: CELEXA 30 MG PO (09:32)
--- NOTE | 2024-08-05 10:27 | W.PN.CD ---
Today's Communication / Plan
-
-Patient with cough, rash and pustules on face; recommend ID evaluation as patient returned from [facility] 2 days ago and went straight to the ER.
-Volume status appears to be relatively stable; will transition to Lasix 20 mg PO daily.
-Continue Toprol-XL, Farxiga, and spironolactone.
-Will start lisinopril 2.5 mg daily.
-Try to obtain previous medical records from [place].
Impression / Plan
-
SOB/cough:
-flu and covid negative. Recent international travel- defer any other infectious w/u to primary team.
-Right pleural effusion s/p thoracentesis (700 cc removed).
-Patient with cough, rash and pustules on face; recommend ID evaluation as patient returned from [facility] 2 days ago and went straight to the ER.
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
-BNP 4560.
-Volume status appears to be relatively stable; will transition to Lasix 20 mg PO daily.
-Continue Toprol-XL, Farxiga, and spironolactone.
-Will start lisinopril 2.5 mg daily.
Idioventricular rhythm:
-Appears to be relatively stable.
-Try to obtain previous medical records from [place].
CAD with hx stenting:
-stable without any CP
-trops unremarkable
-on Eliquis, statin, BB
Aortic stenosis (mild on cath 2009):
-Peak/mean gradients across aortic valve were normal (23/11 mmHg).
-obtain records from buyer intern
LLE DVT:
-on Eliquis
-no PE on CT scan
Hx cardiac arrest per chart, with anoxic brain injury:
-details unknown
DM:
-not presently on meds
Hx CT surgery:
-details unknown, records requested
Physical Exam
Vital Signs/Labs
Vital Signs
Temp Pulse Resp BP Pulse Ox
97.9 F 69 14 132/59 98
08/05/24 08:05 08/05/24 08:05 08/05/24 08:05 08/05/24 08:05 08/05/24 08:05
08/04/24 08/05/24 08/06/24
06:59 06:59 06:59
Actual Weight 78.925 kg 78.199 kg
08/04/24 07:07
08/05/24 06:29
Triglycerides 69 mg/dl (10-149) 08/04/24 07:07
LDL Cholesterol, Calc 62 mg/dl 08/04/24 07:07
VLDL Cholesterol, Calc 13 mg/dl (0-30) 08/04/24 07:07
HDL Cholesterol 33 mg/dl 08/04/24 07:07
08/03/24
18:15
Aji-X-Tdciqggzwfz Pept 4560
LAB Results
08/03/24 08/03/24
18:15 21:21
Troponin I 0.023 0.022
Physical Exam
Constitutional: No acute distress and Comfortable
EENT: Anicteric
Cardiovascular: Rhythm & rate is regular (Ectopy present), Pedal edema is absent, Systolic murmur present (2-3/6) and S1S2 is normal
Respiratory: Respiratory effort normal, Lungs clear to auscul. and Other (patient with cough)
GI: Soft
Neuro/Psych: Alert
Other: Skin (Warm, dry, intact)
Data Reviewed
-
Date of Service: August 05, 2024
Echo: Report Reviewed by me (40%)
Labs: Labs Reviewed by me
--- NOTE | 2024-08-05 11:39 | W.PN.HOSP.TC ---
Today's Communication/Plan
-
GDMT
IV vancomycin
ID input
Assessment / Plan
Assessment / Plan
#Acute HFrEF
-ECHO wtih EF of 40%. S/p MV repair with mild to moderate MR and a mild gradient of 4 mmHg across the MV.
-await OP records
-Lasix per cards. Requires invasive monitoring. Strict I's and O's. Daily weights.
-Having good urinary output
-started on GDMT w lisinopril, aldactone, farxiga. Cont Toprol, statin.
-Cardiology following.
#cough likely 2/2 Right-sided pleural effusion
-Lymphocytic predominant. Glucose normal. TG normal. pH 7.5. Amylase normal. Await for further cytology and culture data bacterial/fungal.
-Fungal smear negative.
-bacterial culture prelim negative
-Exudative. However, with heart failure possibility of pseudo-exudative. procal negative.
-If with productive cough check sputum sample
-If procal elevated may need to treat as possibility of parapneumonic effusion
#Facial carbuncle/cellulitis
-IV antibiotics vancomycin for now
-recent travel history noted
-Will ask ID for input
#Recent weight loss
-blood culture checked per cards for -low suspicious of infection with subacute bacterial endocarditis
-Nutrition eval
-OP further work up. CT chest negative for lesion.
#CAD
s/p multiple stents
- continue rosuvastatin
#NIDDM
Patient recently had medications discontinued as A1c well controlled with diet and exercise
- monitor BMP
#benign hypertension
patient controlled with diet and exercise (previously on Lisinopril)
- continue metoprolol
#Hx DVT
dx July 21, 2024 and started on Eliquis
- continue Eliquis
#anxiety/depression
- continue citalopram
#Hx anoxic brain injury s/p cardiac arrest 17 years ago
- continue ezetimibe and memantine
#Chronic thrombocytopenia
-trend platelet
#aortic stenosis
Code status: full code
DVT prophylaxis: Lovenox sq
d/w with caregiver at bedside
Anticipated Discharge: > 48 hours
Subjective/Interval History
-
Date of Service: August 05, 2024
pt shaved yesterday
noticed purulent lesion on face and upper lip
no fevers
not pruritic
recent travel to [facility]
Objective Data
-
Labs:
Laboratory Results
08/05/24
06:29
Sodium 139
Potassium 4.0
Chloride 103
Carbon Dioxide 31 H
BUN 19
Creatinine 1.0
Glucose 125 H
Calcium 9.2
Vital Signs:
Vital Signs
Temp Pulse Resp BP Pulse Ox
97.9 F 69 14 132/59 98
08/05/24 08:05 08/05/24 08:05 08/05/24 08:05 08/05/24 08:05 08/05/24 08:05
I&O
08/04/24 08/05/24 08/06/24
06:59 06:59 06:59
Intake Total 240 / 240 1140 / 1140
Output Total 3875 / 3875 2250 / 2250
Balance -3635 / -3635 -1110 / -1110
Physical Exam
-
General: Well Developed and No Apparent Distress
HEENT: Normocephalic, Atraumatic, Moist Mucous Membranes and Other (R upper lip lesion crusted. Left chin and facial purulent lesion. No oral lesion. No other rash on body. )
Respiratory: Decreased Breath Sounds
Cardiac: Regular Rhythm and S1/S2; Negative Murmur, Rub or Gallop
GI: Soft, Nontender, Nondistended and Normal Bowel Sounds; Negative Organomegaly
Rectal: Deferred by Provider
Musculoskeletal: No Clubbing, No Cyanosis and No Edema
Skin: Negative Rash
Neuro: Awake and Nonfocal/Grossly Intact
Psych: Calm
Data Reviewed
-
Total Time Spent with Patient (in minutes): 55
--- NOTE | 2024-08-05 11:43 | PHA.VAN.IN ---
Assessment
- Assessment
Renal Function: Appears similar to baseline (no recent labs but likely similar to baseline)
AUC Dosing Plan
- Dosing Variables
Dosing Weight (kg): 78
Dosing CrCl (ml/min): 67
Vd coefficient (L/kg): 0.7
- Empiric Dosing
Maintenance Regimen: Vanc 750mg Q12H - first dose now and 1800 in lieu of loading dose
Estimated AUC (mcg*h/mL): 472
Estimated Peak (mcg*h/mL): 26.8
Estimated Trough (mcg/ml): 13.8
Estimated Half Life (H): 11.5
- Monitoring
No levels ordered at this time: consider levels in next few days
Pharmacokinetics Vancomycin I
- -
Patient Age: 74
Patient Sex: Male
Vancomycin Day #: 1
Indication: Skin And Soft Tissue
Requesting Provider: Dr. Duenas
Pertinent Antimicrobial Allergies:
no pertinent antibiotic allergies
Height / Weight:
Height 5 ft 9 in
Actual Weight 78.199 kg
Pertinent Past Medical History: DM
- Vital Signs / Lab Results
Temp Pulse Resp BP Pulse Ox
97.9 F 69 14 132/59 98
08/05/24 08:05 08/05/24 08:05 08/05/24 08:05 08/05/24 08:05 08/05/24 08:05
Lab Results - Hematology
08/03/24 08/04/24
15:57 07:07
WBC 4.2 L 3.4 L
Lab Results - Chemistry
08/03/24 08/04/24 08/05/24
15:57 07:07 06:29
BUN 20 16 19
Creatinine 1.0 1.0 1.0
Estimated Creat Clear 67 67
Albumin 3.5
Microbiology Results
08/04/24 09:35 Body Fluid Culture - Preliminary
Pleural Fluid No Growth After 18-24 Hours
Gram Stain - Preliminary
08/04/24 09:36 Fungal Smear - Final
Pleural Fluid No yeast or fungal elements seen.
Fungal Culture - Preliminary
Culture in progress.
Positive cultures are reported as soon as detected.
Final report to follow in four to five weeks.
08/03/24 15:57 Influenza Types A & B ([facility]IS CARLOS) - Final
Nasal Swab Negative for Influenza A & B, NAAT
Negative results must be combined with clinical observations
and patient history.
Nucleic Acid Amplification test (NAAT)performed on the
[email or web address] platform.
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
[2024-08-05] MEDS: VANCOCIN 150 IV (13:26)
--- NOTE | 2024-08-05 14:48 | CM ---
Placed a return call to [facility] and spoke with El, Pharmacist who stated that all medications for duron check are all 47 dollars. She stated that she had question about patient's Entresto. Will update attending.
Plan: Case management will continue to follow and assist with discharge planning. Home with caregivers.
[2024-08-05] MEDS: VALTREX 1000 MG PO ×2 (17:06→21:11)
[2024-08-06 03:00] VITALS: BP 106/54
[2024-08-06 06:00] VITALS: BMI 25.0
[2024-08-06 07:23] LABS: Blood Urea Nitrogen 22 mg/dl (9-20); Calcium 9.2 mg/dl (8.4-10.2); Carbon Dioxide 30 mmol/L (22-30); Chloride 101 mmol/L (98-107); Estimated Creatinine Clearance 61 ml/min; Glucose 122 mg/dl (70-99); Potassium 4.1 mmol/L (3.5-5.1); Sodium 138 mmol/L (135-145); eGFR > 60.00
[2024-08-06 07:51] VITALS: BP 118/55
[2024-08-06] MEDS: CELEXA 30 MG PO (09:06)
[2024-08-06] MEDS: TOPROL XL 25 MG PO (09:08)
[2024-08-06] MEDS: FARXIGA 10 MG PO (09:10)
[2024-08-06] MEDS: LASIX 20 MG PO (09:10)
[2024-08-06] MEDS: VALTREX 1000 MG PO ×3 (09:10→20:59)
[2024-08-06] MEDS: NAMENDA 10 MG PO ×2 (09:10→20:58)
[2024-08-06] MEDS: CRESTOR 20 MG PO (09:10)
[2024-08-06] MEDS: THERAGRAN 1 TABLET PO (09:11)
[2024-08-06] MEDS: ELIQUIS 5 MG PO ×2 (09:11→20:58)
[2024-08-06] MEDS: ZESTRIL 2.5 MG PO (09:11)
[2024-08-06] MEDS: ZETIA 10 MG PO (09:11)
[2024-08-06] MEDS: ALDACTONE 25 MG PO (09:11)
--- NOTE | 2024-08-06 09:59 | W.PN.ID1 ---
Date of Service
Date of Service: August 06, 2024
Today's Communication
Continue po valacyclovir.
Assessment / Plan
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 Unlikely disseminated zoster.
-Vesicle fluid HSV, VZV PCR and aerobic culture pending
- Continue valacyclovir po (d2)
- Continue airborne isolation for now pending viral PCR result and/or all lesions crusted.
# Acute CHF
# R pleural effusion
-s/p thoracentesis -> transudative.
# Recent return travel from [facility] ([place])
- Had received pre-travel medicine counselling
- No concern for travel-related diseases at this time.
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
DM
HTN
CAD s/p stents
MV repair
Anoxic brain injury after cardiac arrest during cardiac cath/stent (2007)
Spontaneous LLE DVT
Chief Complaint
-: Other (HSV)
Subjective / Review of Systems
No pain
Vital Signs / Physical Exam
Vital Signs
Vital Signs
Temp Pulse Resp BP Pulse Ox
97.4 F 63 16 118/55 98
08/06/24 07:51 08/06/24 09:11 08/06/24 07:51 08/06/24 09:11 08/06/24 07:51
Physical Exam
Constitutional: No Acute Distress
Pulmonary: Other (decreased BS)
Gastrointestinal: Soft, Non Tender and Non Distended
Skin: Other (vesicular lesions on philtrum to right angle of mouth, left chin, left cheek continuous drier helper)
Neurological: Awake and Alert
Objective Data
Lab Data
Lab Results
08/04/24 07:07
08/06/24 06:45
Estimated Creat Clear 61 ml/min 08/06/24 06:45
Total Bilirubin 1.5 mg/dl (0.2-1.3) H 08/03/24 15:57
AST 72 U/L (17-59) H 08/03/24 15:57
ALT 65 U/L (0-50) H 08/03/24 15:57
Alkaline Phosphatase 67 U/L (38-126) 08/03/24 15:57
Most recent labs reviewed.
Micro Results:
08/04/24 09:35 Acid Fast Bacilli Smear - Preliminary
Pleural Fluid Acid Fast Bacilli Culture - Preliminary
08/05/24 14:10 Wound Culture - Pending
Lesion Gram Stain - Preliminary
08/05/24 13:35 Nasal Screen MRSA (PCR) - Final
Nose MRSA not detected - performed by PCR methodology.
08/04/24 13:26 Blood Culture - Preliminary
Blood/Venous No Growth in 24 hours- Final report to follow
08/04/24 12:34 Blood Culture - Preliminary
Blood/Venous No Growth in 24 hours- Final report to follow
08/04/24 09:35 Body Fluid Culture - Preliminary
Pleural Fluid No Growth After 18-24 Hours
Gram Stain - Preliminary
08/04/24 09:36 Fungal Smear - Final
Pleural Fluid No yeast or fungal elements seen.
Fungal Culture - Preliminary
Culture in progress.
Positive cultures are reported as soon as detected.
Final report to follow in four to five weeks.
08/03/24 15:57 Influenza Types A & B (LUIS CARLOS) - Final
Nasal Swab Negative for Influenza A & B, NAAT
Negative results must be combined with clinical observations
and patient history.
Nucleic Acid Amplification test (NAAT)performed on the
[employer] platform.
08/03/[address]: 1. No evidence of pulmonary embolism. Moderate right pleural effusion. Scattered slightly prominent mediastinal and hilar lymph nodes, likely reactive.
[2024-08-06 11:28] VITALS: BP 107/54
--- NOTE | 2024-08-06 12:07 | W.PN.HOSP.TC ---
Today's Communication/Plan
-
await HSV/VZV culture data
po valtrex
GDMT
Assessment / Plan
Assessment / Plan
#Acute HFrEF
-ECHO wtih EF of 40%. S/p MV repair with mild to moderate MR and a mild gradient of 4 mmHg across the MV.
-await OP records
-Lasix per cards. Requires invasive monitoring. Strict I's and O's. Daily weights.
-Having good urinary output
-started on GDMT w lisinopril, aldactone, farxiga. Cont Toprol, statin.
-Cardiology following.
#cough likely 2/2 Right-sided pleural effusion
-Lymphocytic predominant. Glucose normal. TG normal. pH 7.5. Amylase normal. Await for further cytology and culture data bacterial/fungal.
-Fungal smear negative.
-bacterial culture prelim negative
-Exudative. However, with heart failure possibility of pseudo-exudative. procal negative.
-If with productive cough check sputum sample
#Facial cutaneous HSV
-await culture of HSV, VZV
-recent travel history noted
-on po valtrex.
-cont with isolation
-Will ask ID for input
#Recent weight loss
-blood culture checked per cards for -low suspicious of infection with subacute bacterial endocarditis
-Nutrition eval
-OP further work up. CT chest negative for lesion.
#CAD
s/p multiple stents
- continue rosuvastatin
#NIDDM
Patient recently had medications discontinued as A1c well controlled with diet and exercise
- monitor BMP
#benign hypertension
patient controlled with diet and exercise (previously on Lisinopril)
- continue metoprolol
#Hx DVT
dx July 21, 2024 and started on Eliquis
- continue Eliquis
#anxiety/depression
- continue citalopram
#Hx anoxic brain injury s/p cardiac arrest 17 years ago
- continue ezetimibe and memantine
#Chronic thrombocytopenia
-trend platelet
#aortic stenosis
Code status: full code
DVT prophylaxis: Lovenox sq
d/w with caregiver at bedside in details
Anticipated Discharge: Within 24 hours
Subjective/Interval History
-
Date of Service: August 06, 2024
Per caregiver, rash is improving . Has not spread.
crusting noted above lip.
Objective Data
-
Labs:
Laboratory Results
08/06/24
06:45
Sodium 138
Potassium 4.1
Chloride 101
Carbon Dioxide 30
BUN 22 H
Creatinine 1.1
Glucose 122 H
Calcium 9.2
Vital Signs:
Vital Signs
Temp Pulse Resp BP Pulse Ox
97.8 F 69 17 107/54 96
08/06/24 11:28 08/06/24 11:28 08/06/24 11:28 08/06/24 11:28 08/06/24 11:28
I&O
08/05/24 08/06/24 08/07/24
06:59 06:59 06:59
Intake Total 1140 / 1140 480 / 480
Output Total 2250 / 2250 500 / 500
Balance -1110 / -1110 -20 / -20
Physical Exam
-
General: Well Developed and No Apparent Distress
HEENT: Normocephalic, Atraumatic, Moist Mucous Membranes and Other (R upper lip lesion crusted. Left chin and facial purulent lesion. No oral lesion. No other rash on body. )
Respiratory: Decreased Breath Sounds
Cardiac: Regular Rhythm and S1/S2; Negative Murmur, Rub or Gallop
GI: Soft, Nontender, Nondistended and Normal Bowel Sounds; Negative Organomegaly
Rectal: Deferred by Provider
Musculoskeletal: No Clubbing, No Cyanosis and No Edema
Skin: Negative Rash
Neuro: Awake and Nonfocal/Grossly Intact
Psych: Calm
--- NOTE | 2024-08-06 12:08 | W.PN.CD ---
Addendum entered and electronically signed by Cameron Bunch MD 08/06/24 13:36:
I saw and examined the patient.
The HOTEL BAGGAGE HANDLER's note was reviewed and I agree with the note.
Comment: Patient feels well and has no new complaints for me today.
Cont Lasix 20 mg daily, cont GDMT with Metoprolol Farxiga lisinopril and Spironolactone
He will f/u with his [facility] analytic manager.
We will sign off please call with questions/concerns.
Original Note:
Today's Communication / Plan
-
diuresed well, continue Lasix 20mg daily.
continue current cardiac meds and follow up with analytic manager at [facility].
Impression / Plan
-
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
-BNP 4560.
-Right pleural effusion s/p thoracentesis (700 cc removed).
-Improved as weight is down, continue Lasix 20 mg PO daily.
-Continue Toprol-XL, Farxiga, Lisinopril and spironolactone.
Idioventricular rhythm:
-Stable.
CAD with prior stenting: stable without angina.
-trops unremarkable.
-on Eliquis, statin, BB.
Aortic stenosis (mild on cath 2009):
-Peak/mean gradients across aortic valve were normal (23/11 mmHg).
-continue f/u with analytic manager at [facility].
LLE DVT: stable on Eliquis.
-no PE on CT scan.
Hx cardiac arrest per chart, with anoxic brain injury: stable.
-has 24/ caregiver.
DM: stable, not presently on meds.
Physical Exam
Vital Signs/Labs
Vital Signs
Temp Pulse Resp BP Pulse Ox
97.8 F 69 17 107/54 96
08/06/24 11:28 08/06/24 11:28 08/06/24 11:28 08/06/24 11:28 08/06/24 11:28
08/05/24 08/06/24 08/07/24
06:59 06:59 06:59
Actual Weight 172 lb 6.4 oz 169 lb 2 oz
08/04/24 07:07
08/06/24 06:45
Triglycerides 69 mg/dl (10-149) 08/04/24 07:07
LDL Cholesterol, Calc 62 mg/dl 08/04/24 07:07
VLDL Cholesterol, Calc 13 mg/dl (0-30) 08/04/24 07:07
HDL Cholesterol 33 mg/dl 08/04/24 07:07
08/03/24
18:15
Tbc-O-Vixutjuhkfa Pept 4560
LAB Results
08/03/24 08/03/24
18:15 21:21
Troponin I 0.023 0.022
Physical Exam
Constitutional: No acute distress
EENT: Anicteric and Moist mucous membranes
Cardiovascular: Rhythm & rate is regular
Respiratory: Respiratory effort normal and Lungs clear to auscul.
GI: Soft, Non tender and Normal bowel sounds
Neuro/Psych: AO x 3
Other: Skin (warm, dry. scabbed areas noted to face )
Data Reviewed
-
Date of Service: August 06, 2024
Medical Decision Making: Reviewed Test Results
EKG: Tracing Personally Visualized and interpreted
Echo: Report Reviewed by me
Labs: Labs Reviewed by me
Old Records: Requested
[2024-08-06 15:04] VITALS: BP 112/51
[2024-08-06 23:21] VITALS: BP 107/51
[2024-08-07 06:00] VITALS: BMI 25.4
[2024-08-07 07:05] VITALS: BP 109/63
--- NOTE | 2024-08-07 08:39 | W.PN.ID1 ---
Date of Service
Date of Service: August 07, 2024
Today's Communication
Continue valacyclovir po 1g po tid (d3 of 7) through 08/11/24
Can dc home from ID standpoint.
Assessment / Plan
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 Unlikely disseminated zoster.
-Vesicle fluid HSV, VZV PCR and aerobic culture pending
- Continue valacyclovir po 1g po tid (d3 of 7) through 08/11/24
- Can dc home from ID standpoint.
# s/p Acute CHF
# R pleural effusion
-s/p thoracentesis -> transudative.
# Recent return travel from [facility] ([place])
- Had received pre-travel medicine counselling
- No concern for travel-related diseases at this time.
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
DM
HTN
CAD s/p stents
MV repair
Anoxic brain injury after cardiac arrest during cardiac cath/stent (2007)
Spontaneous LLE DVT
Chief Complaint
-: Other (HSV)
Subjective / Review of Systems
Friend Tatianna at bedside. Lesions getting itchy.
Vital Signs / Physical Exam
Vital Signs
Vital Signs
Temp Pulse Resp BP Pulse Ox
97.7 F 69 18 109/63 97
08/07/24 07:05 08/07/24 07:05 08/07/24 07:05 08/07/24 07:05 08/07/24 07:05
Physical Exam
Constitutional: No Acute Distress
Pulmonary: Clear
Gastrointestinal: Soft, Non Tender, Non Distended and Normal Bowel Sounds
Genito-Urinary: Negative CVA Tenderness
Skin: Rash (Lesions on face crusting.)
Neurological: Awake and Alert
Objective Data
Lab Data
Estimated Creat Clear 61 ml/min 08/06/24 06:45
Total Bilirubin 1.5 mg/dl (0.2-1.3) H 08/03/24 15:57
AST 72 U/L (17-59) H 08/03/24 15:57
ALT 65 U/L (0-50) H 08/03/24 15:57
Alkaline Phosphatase 67 U/L (38-126) 08/03/24 15:57
Most recent labs reviewed.
Micro Results:
08/04/24 09:35 Body Fluid Culture - Final
Pleural Fluid No Growth After 72 Hours
Gram Stain - Final
08/04/24 13:26 Blood Culture - Preliminary
Blood/Venous No Growth in 48 hours- Final report to follow
08/05/24 14:10 Wound Culture - Preliminary
Lesion Gram Stain - Preliminary
08/04/24 12:34 Blood Culture - Preliminary
Blood/Venous No Growth in 48 hours- Final report to follow
08/04/24 09:35 Acid Fast Bacilli Smear - Preliminary
Pleural Fluid Acid Fast Bacilli Culture - Preliminary
08/05/24 13:35 Nasal Screen MRSA (PCR) - Final
Nose MRSA not detected - performed by PCR methodology.
08/04/24 09:36 Fungal Smear - Final
Pleural Fluid No yeast or fungal elements seen.
Fungal Culture - Preliminary
Culture in progress.
Positive cultures are reported as soon as detected.
Final report to follow in four to five weeks.
08/03/24 15:57 Influenza Types A & B (LUIS CARLOS) - Final
Nasal Swab Negative for Influenza A & B, NAAT
Negative results must be combined with clinical observations
and patient history.
Nucleic Acid Amplification test (NAAT)performed on the
[employer] platform.
08/03/[address]: 1. No evidence of pulmonary embolism. Moderate right pleural effusion. Scattered slightly prominent mediastinal and hilar lymph nodes, likely reactive.
Care Review
Plan reviewed with: Physician (Dr. Duenas)
[2024-08-07] MEDS: CRESTOR 20 MG PO (08:52)
[2024-08-07] MEDS: CELEXA 30 MG PO (08:52)
[2024-08-07] MEDS: FARXIGA 10 MG PO (08:52)
[2024-08-07] MEDS: ELIQUIS 5 MG PO (08:54)
[2024-08-07] MEDS: NAMENDA 10 MG PO (08:54)
[2024-08-07] MEDS: VALTREX 1000 MG PO (08:54)
[2024-08-07] MEDS: THERAGRAN 1 TABLET PO (08:54)
[2024-08-07] MEDS: ZETIA 10 MG PO (08:55)
[2024-08-07] MEDS: ZESTRIL 2.5 MG PO (08:59)
[2024-08-07] MEDS: LASIX 20 MG PO (08:59)
[2024-08-07] MEDS: TOPROL XL 25 MG PO (08:59)
[2024-08-07 09:00] LABS: Hematocrit 39.4 % (39.0-52.0); Hemoglobin 12.6 g/dL (13.0-18.0); Mean Corpuscular Hgb 29.1 pg (27.0-31.0); Mean Platelet Volume 10.8 fL (7.4-10.4); Platelet Count 162 10^3/uL (130-400); Red Blood Cell Count 4.33 10^6/uL (4.70-6.10); Red Cell Dist. Width 16.7 % (11.5-14.5); White Blood Cell Count 2.7 10^3/uL (4.8-10.8)
[2024-08-07] MEDS: ALDACTONE PO (09:00)
--- NOTE | 2024-08-07 09:01 | PTCARENOTE ---
Notified provider BP 109/63, pulse 69, received TT to hold spironolactone, can give lisinopril, Toprol XL and furosemide
[2024-08-07 09:30] LABS: Blood Urea Nitrogen 32 mg/dl (9-20); Calcium 9.1 mg/dl (8.4-10.2); Carbon Dioxide 28 mmol/L (22-30); Chloride 103 mmol/L (98-107); Estimated Creatinine Clearance 61 ml/min; Glucose 251 mg/dl (70-99); Potassium 4.3 mmol/L (3.5-5.1); Sodium 138 mmol/L (135-145); eGFR > 60.00
--- NOTE | 2024-08-07 10:44 | W.PN.HOSP.TC ---
Today's Communication/Plan
-
Goal-directed medical therapy. DC Aldactone as with soft blood pressure and can be reevaluated as outpatient
P.o. Valtrex
Assessment / Plan
Assessment / Plan
#Acute on chronic HFrEF
#Aortic stenosis
-ECHO wt EF of 40%. S/p MV repair with mild to moderate MR and a mild gradient of 4 mmHg across the MV.
-Lasix per cards. 20mg po daily. Requires invasive monitoring. Strict I's and O's. Daily weights.
-Having good urinary output
-started on GDMT w lisinopril, aldactone, farxiga. Cont Toprol, statin. Due to soft blood pressure probably can discontinue Aldactone. 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
-Cardiology following.
#cough likely 2/2 Right-sided pleural effusion
-Lymphocytic predominant. Glucose normal. TG normal. pH 7.5. Amylase normal. Cytology found to be negative for malignant cells.
-Fungal smear negative.
-bacterial culture remains negative.
-Exudative. However, with heart failure possibility of pseudo-exudative. procal negative.
#Facial cutaneous HSV
- culture of HSV, VZV pending but high probability of HSV
-recent travel history noted
-on po valtrex.
-cont with isolation
-Per, ID patient can be discharged on p.o. Valtrex.
#Recent weight loss
-blood culture checked per cards for -low suspicious of infection with subacute bacterial endocarditis
-Nutrition eval
-OP further work up. CT chest negative for lesion.
#CAD
s/p multiple stents
- continue rosuvastatin
#NIDDM
Patient recently had medications discontinued as A1c well controlled with diet and exercise
- monitor BMP
#benign hypertension
patient controlled with diet and exercise (previously on Lisinopril)
- continue metoprolol
#Hx DVT
dx July 21, 2024 and started on Eliquis
- continue Eliquis
#anxiety/depression
- continue citalopram
#Hx anoxic brain injury s/p cardiac arrest 17 years ago
- continue ezetimibe and memantine
#Chronic thrombocytopenia
-trend platelet
#aortic stenosis
Code status: full code
DVT prophylaxis: Lovenox sq
d/w with caregiver at bedside in details on daily basis. Caregiver to make appointment with cardiology next week.
Discussed with infectious disease Dr. Carpio.
More than 30 minutes spent in discharge including
Final examination of the patient
Summarizing hospital stay
Instructions for continuing care to all relevant caregivers
Preparation of discharge records, prescriptions, and referral forms
Total time spent (in minutes): 55
Anticipated Discharge: Today
Subjective/Interval History
-
Date of Service: August 07, 2024
Sitting in chair.
Denies any lightheaded dizziness
Tolerating diet
Objective Data
-
Labs:
Laboratory Results
08/07/24
08:39
WBC 2.7 L
Hgb 12.6 L
Hct 39.4
Plt Count 162
Sodium 138
Potassium 4.3
Chloride 103
Carbon Dioxide 28
BUN 32 H
Creatinine 1.1
Glucose 251 H
Calcium 9.1
Vital Signs:
Vital Signs
Temp Pulse Resp BP Pulse Ox
97.7 F 69 18 109/63 97
08/07/24 07:05 08/07/24 09:00 08/07/24 07:05 08/07/24 09:00 08/07/24 07:05
I&O
08/06/24 08/07/24 08/08/24
06:59 06:59 06:59
Intake Total 480 / 480 1270 / 1270
Output Total 500 / 500 530 / 530
Balance -20 / -20 740 / 740
Physical Exam
-
General: Well Developed and No Apparent Distress
HEENT: Normocephalic, Atraumatic, Moist Mucous Membranes and Other (R upper lip lesion crusted. Left chin and facial crusted. no oral lesion. No other rash on body. )
Respiratory: Decreased Breath Sounds
Cardiac: Regular Rhythm and S1/S2; Negative Murmur, Rub or Gallop
GI: Soft, Nontender, Nondistended and Normal Bowel Sounds; Negative Organomegaly
Rectal: Deferred by Provider
Musculoskeletal: No Clubbing, No Cyanosis and No Edema
Skin: Negative Rash
Neuro: Awake and Nonfocal/Grossly Intact
Psych: Calm
--- NOTE | 2024-08-07 10:55 | W.DCSUMMARY ---
Discharge Summary
Discharge Data
Date of Admission: 08/03/24
Date of Discharge: 08/07/24
-
Pending Results: No
Hospital Course
74-year-old male past medical history of chronic HFrEF, CAD status post stents, diabetes mellitus, hypertension, history of DVT, anxiety, depression, history of anoxic brain injury status postcardiac arrest, chronic thrombocytopenia, aortic stenosis
is presenting to the hospital with complaint of shortness of breath and cough. Patient recently went to [facility] and started developing coughing with shortness of breath and decided to end the treatment come straight to the hospital. Patient was
found to have severe pleural effusion and underwent thoracentesis with 700 cc of fluid removed. Fluid culture was negative. Fungal smear was negative. Cytology was negative. Likely transudative versus pseudo exudative. Pro-Alvino was negative.
Patient was also found to have severe heart failure exacerbation. Underwent echocardiogram.ECHO wtih EF of 40%. S/p MV repair with mild to moderate MR and a mild gradient of 4 mmHg across the MV. Patient with significant improvement with IV
diuresis. IV Lasix was transitioned to p.o. Lasix 20 mg daily. Patient was also started on goal-directed medical therapy with low-dose lisinopril, Aldactone and Farxiga. Due to soft blood pressure Aldactone was discontinued. Patient can
follow-up with his primary soda worker for further goal-directed related medical therapy management. Patient also with facial cutaneous lesion with recent travel to [facility] and thus infectious disease was consulted. 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 Patient with crusting of lesion and was improving significantly. Patient was tolerating diet. Patient was discharged home with recommendation to follow-up outpatient with her primary soda worker and
primary doctor. Patient care was discussed on a daily basis with his caregiver at bedside.
Discharge Plan
-
Patient Disposition: Home (Routine Discharge)
Discharge Diagnosis/Procedures: Acute on chronic HFmrEF
Pleural effusion status post thoracentesis
Facial cutaneous HSV
Condition: Fair
Diet: 2 Gram Sodium and Restrict fluids to 48 oz
Activity: As tolerated
Driving Restrictions: Not until seen by your Dr
Specialty Instructions: Weigh Daily- Call MD for wt gain/loss 3 lbs overnight/5 lbs in 1 week
Instructions: *PCP/Other Ship[employer] Pain[employer] Supervisor Heart Failure Instructions
Referrals:
UNKNOWN - PT DOES,NOT KNOW [Family Provider] - in less than 1 week (Discussed with primary doctor about hyperglycemia and further management of weight loss.)
Prescriptions:
New
dapagliflozin propanediol 10 mg Tablet
10 mg PO DAILY Qty: 30 0RF
lisinopril 2.5 mg Tablet
2.5 mg PO DAILY 30 Days Qty: 30 0RF
valacyclovir [Valtrex] 1 gram tablet
1,000 mg PO TID Qty: 15 0RF
Continued
citalopram 20 mg Tablet
30 mg PO DAILY
metoprolol succinate 25 mg Tablet Extended Release 24 Hr
25 mg PO DAILY
albuterol sulfate 90 mcg/actuation Hfa Aerosol Inhaler
2 puff INHALATION R Q6HPRN PRN (Reason: sob)
ezetimibe 10 mg Tablet
10 mg PO HS
rosuvastatin 20 mg Tablet
20 mg PO HS
memantine 10 mg Tablet
10 mg PO BID
Eliquis 5 mg Tablet
5 mg PO BID
mecobal-levomefolat Ca-B6 phos [Foltanx] 2-3-35 mg Tablet
1 tab PO DAILY
Changed
potassium chloride 20 mEq Tablet,Er Particles/Crystals
20 meq PO DAILY Qty: 0 0RF
furosemide 20 mg Tablet
20 mg PO DAILY Qty: 30 0RF
Discharge Orders:
Discharge Patient (As Directed); Ordered 08/07/24
Ordered By: Yazan Duenas
Discharge Date and Time
Discharge Date/Time: 08/07/24 15:37
Print Language: MALTESE
[2024-08-07 11:53] LABS: % Basophils 0.7 % (0-2); % Eosinophils 1.5 % (0-6); % Immature Granulocytes 0.7 % (0-0.5); % Lymphocytes 28.3 % (20.5-51.1); % Monocytes 16.9 % (1.7-9.3); % Neutrophils 51.9 % (42.2-75.2); Absolute Lymphocytes 0.8 10^3/uL (1.2-3.4); Absolute Monocytes 0.5 10^3/uL (0.1-0.6); Absolute Neutrophils 1.4 10^3/uL (1.4-6.5); Nucleated Red Blood Cells % 0 % (-)
[2024-08-07 14:35] VITALS: BP 113/50
[2024-08-08 06:52] LABS: HSV 1 Subtype by PCR Detected; HSV 2 Subtype by PCR Not Detected
[2024-08-08 08:42] LABS: Varicella-Zoster Virus by PCR Not Detected
--- NOTE | 2024-08-09 09:32 | W.HF.CON ---
Heart Failure
- LV Function
Left ventricular function study result: LV Ejection fraction 36-40%
Ejection Fraction Percentage: 40
- ARNI
Patient already on ARNI: No
Heart Failure ARNI Contraindication: Hypotension
- ACEI/ARB
Patient already on ACEI/ARB: Yes
- Beta Janneth
Patient already on Evidence Based Beta Janneth: Yes
- Mineralocorticord Receptor Antagonist
Patient already on MRA: No
Heart Failure MRA Contraindication: Hypotension
- SGLT-2 Inhibitor
Patient already on SGLT-2 Inhibitor: Yes
- NYHA CHF Classification
NYHA CHF Classification Level: Class III - Symptoms w/ min exertion, interferes w/ nml daily activity
- ACC/AHA Stage
ACC/AHA Stage: Stage C: Symptomatic Heart Failure
== END 2024-08-07 15:37 | disposition home or self-care (01) | DRG 291 ==
LOC: 3 WEST ACU 23:15
PROVIDERS: Emergency Medicine; Internal Medicine Infectious Disease; Nurse Practitioner Family; Radiology Vascular & Interventional Radiology; ADMITTING PHYSICIAN Hospitalist; ATTENDING PHYSICIAN Hospitalist; CONSULT PHYSICIAN Internal Medicine Cardiovascular Disease; CONSULT PHYSICIAN Internal Medicine Infectious Disease; EMERGENCY PHYSICIAN Emergency Medicine
PROC: 0W993ZZ Drainage of Right Pleural Cavity, Percutaneous Approach (ICD-10-PCS; 2024-08-04)
DX: I11.0 Hypertensive heart disease with heart failure (principal); I50.23 Acute on chronic systolic (congestive) heart failure; L03.211 Cellulitis of face; J90 Pleural effusion, not elsewhere classified; E11.9 Type 2 diabetes mellitus without complications; B02.9 Zoster without complications; I35.0 Nonrheumatic aortic (valve) stenosis; I25.10 Atherosclerotic heart disease of native coronary artery without angina pectoris; F41.9 Anxiety disorder, unspecified; F32.A Depression, unspecified; D69.6 Thrombocytopenia, unspecified; Z79.84 Long term (current) use of oral hypoglycemic drugs; Z86.718 Personal history of other venous thrombosis and embolism; Z79.01 Long term (current) use of anticoagulants; Z87.820 Personal history of traumatic brain injury
CPT/HCPCS: 88305; 32555; 71045; 71046; 71275; 80048; 80053; 80061; 82150; 82945; 83615; 83880; 83986; 84145; 84157; 84478; 84484; 85025; 85027; 85379; 87015; 87040; 87070; 87102; 87116; 87147; 87205; 87206; 87502; 87529; 87641; 87798; 87811; 88112; 88341; 88342; 89051; 93005; 93306; 97162; 99285; Q9967

== ENCOUNTER 2025-01-04 23:48 | Inpatient (IN) | payer MEDICARE, SELFPAY ==
[2025-01-04 20:16] VITALS: BP 110/55
[2025-01-04 21:15] VITALS: BP 106/53
[2025-01-04 21:16] VITALS: BMI 26.9
[2025-01-04 21:21] LABS: Urine Character Slightly Cloudy (Clear)
[2025-01-04 21:32] LABS: Urine Squamous Cell 0-2 /LPF (Few); Urine White Cell 50-60 /HPF (0-5)
--- NOTE | 2025-01-04 21:39 | ED.GENMED ---
History of Present Illness
General
Chief Complaint: Urinary Symptoms
Source: patient
Exam Limitations: none
Time Seen by Provider: 01/04/25 21:26
History of Present Illness
History of Present Illness:
74-year-old male presents for evaluation of persistent urinary symptoms and onset of chills today. 2 days ago he developed urinary frequency. He seen at the urgent care and thought to have a urinary tract infection. He recently finished a course
of Keflex for foot infection and I started on doxycycline. Dorie had a total of 6 doses of doxycycline. Earlier today the patient was doing well had good energy however around dinnertime he developed shaking chills and rigors. He was noted to
be somewhat more weak by the . She provides most of the history as he has a history of anoxic amnesia. Patient denies any pain currently
Past History
Past History
ED Past Medical History: CAD, NIDDM, Valvular disease (aortic stenosis) and Other (dvt)
ED Past Surgical History: Cardiac and Orthopedic (right achilles)
Social History
Tobacco: Non-smoker
Alcohol: None
Drug: None
Phy Exam
Physical Exam
Physical Exam:
General: Well-appearing male no acute respiratory distress
HEENT: Normocephalic atraumatic
Heart: Regular rate and rhythm
Lungs: Clear no wheeze
Abdomen soft nontender nondistended
Extremities: No cyanosis
Skin is warm
Course
Orders/Labs/Results
Orders:
Orders
01/04/25 21:10
Urinalysis Reflex To Culture Urgent
Date Specimen was Collected: 01/04/25
Time Specimen was Collected: 21:05
Urine Microscopic Reflex Cult Urgent
Urine Culture Urgent
TARYN Source: U
Specimen Description:
Date Specimen was Collected: 01/04/25
Time Specimen was Collected: 21:05
01/04/25 21:37
CT Abd/pelvis W Iv Cont Urgent
Comment:
Reason For Exam: chills, urinary symptoms
01/04/25 21:47
Complete Blood Count/With Diff Urgent
Comprehensive Metabolic Panel Urgent
Lactic Acid Q4H
Comment: CANCEL 2nd LACTIC ACID IF 1st LACTIC ACID IS LESS THAN 2
Blood Culture Q30M
TARYN Source: Blood/Venous
Specimen Description:
01/04/25 21:56
Blood Culture Q30M
TARYN Source: Blood/Venous
Specimen Description:
01/04/25 23:10
CefTRIAXone [Rocephin] 1,000 mg IV NOW STA
01/04/25 23:20
NSS 1000mL Bolus over 1 hr 0.9% Sodium Chloride 1000 ml [Nss] 1,000 ml IV BOLUS
01/05/25 01:45
Lactic Acid Q4H
Comment: CANCEL 2nd LACTIC ACID IF 1st LACTIC ACID IS LESS THAN 2
Abnormal Lab Results
01/04/25 01/04/25
21:10 21:47
RBC 3.59 L 10^6/uL
(4.70-6.10)
Hgb 11.2 L g/dL
(13.0-18.0)
Hct 34.0 L %
(39.0-52.0)
MCV 94.7 H fL
(80.0-94.0)
MCH 31.2 H pg
(27.0-31.0)
MCHC 32.9 L g/dL
(33.0-37.0)
RDW 15.9 H %
(11.5-14.5)
Plt Count 86 L 10^3/uL
(130-400)
Absolute Lymphs (auto) 0.5 L 10^3/uL
(1.2-3.4)
Immature Gran % 0.6 H %
(0-0.5)
Neutrophils % 84.6 H %
(42.2-75.2)
Lymphocytes % 6.6 L %
(20.5-51.1)
Sodium 134 L mmol/L
(135-145)
BUN 33 H mg/dl
(9-20)
Glucose 124 H mg/dl
(70-99)
Total Bilirubin 1.9 H mg/dl
(0.2-1.3)
AST 109 H U/L
(17-59)
ALT 81 H U/L
(0-50)
Ur Occult Blood Reflex 3+ A
(Negative)
Urine Urobilinogen 2+ A
(Neg - 1+)
Leukocyte Esterase Rfl 2+ A
(Negative)
Urine RBC 3-6 A /HPF
(0-2)
Urine WBC (Reflex) 50-60 A /HPF
(0-5)
Urine Bacteria (Reflex) Many A
(Negative)
Urine Glucose 4+ A
(Negative)
Urine Albumin (Reflex) 2+ A
(Neg - Trace)
01/04/25 21:47
01/04/25 21:47
Vital Signs
Initial and Last Documented VS:
Initial Vital Signs
Temp Pulse Resp BP Pulse Ox
98.6 F 80 18 110/55 95
01/04/25 20:16 01/04/25 20:16 01/04/25 20:16 01/04/25 20:16 01/04/25 20:16
Last Documented Vital Signs
Temp Pulse Resp BP Pulse Ox
98.6 F 80 18 117/62 96
01/04/25 20:16 01/04/25 20:16 01/04/25 20:16 01/04/25 22:00 01/04/25 22:30
MDM/Problems Addressed
Differential Diagnosis Includes:
Patient presents after onset of rigors earlier today with associated urinary symptoms. Consider ascending urinary tract infection versus pyelonephritis or sepsis or kidney stone
Will check urine and labs. CT pending
*Pulse Oximetry
SaO2: 97
Oxygen Mode of Delivery: Room air
Patient hypoxic: no
*Critical Care Note
Total Time (30-74mins, 75-104mins- exclusive of procedures): Not Applicable
Update Note
Update Note:
CT without signs of pyelonephritis. Bladder wall thickening to suggest cystitis. Labs reviewed lactic normal white count normal urinalysis still with infection. Patient presented with rigors despite oral treatment for UTI. Will start Rocephin
order fluids and admit to hospital
ED Attending Note
-
Portions of this chart may have been created with voice recognition software.� Occasional wrong word or��sound alike� substitutions may have occurred due to the inherent limitations of voice recognition software.
Discharge Plan
Departure
Patient Disposition: Admit
Date of Disposition: 01/04/25
Time of Disposition: 23:21
Presentation/result/management discussed w/ accepting MD/DO: Hospitalist
Discharge Problem:
Acute UTI
Prescriptions:
No Action
citalopram 20 mg Tablet
30 mg PO DAILY
metoprolol succinate 25 mg Tablet Extended Release 24 Hr
25 mg PO DAILY
albuterol sulfate 90 mcg/actuation Hfa Aerosol Inhaler
2 puff INHALATION R Q6HPRN PRN (Reason: sob)
ezetimibe 10 mg Tablet
10 mg PO HS
rosuvastatin 20 mg Tablet
20 mg PO HS
memantine 10 mg Tablet
10 mg PO BID
Eliquis 5 mg Tablet
5 mg PO BID
mecobal-levomefolat Ca-B6 phos [Foltanx] 2-3-35 mg Tablet
1 tab PO DAILY
dapagliflozin propanediol 10 mg Tablet
10 mg PO DAILY Qty: 30 0RF
lisinopril 2.5 mg Tablet
2.5 mg PO DAILY 30 Days Qty: 30 0RF
potassium chloride 20 mEq Tablet,Er Particles/Crystals
20 meq PO DAILY Qty: 0 0RF
furosemide 20 mg Tablet
20 mg PO DAILY Qty: 30 0RF
valacyclovir [Valtrex] 1 gram tablet
1,000 mg PO TID Qty: 15 0RF
Referrals:
UNKNOWN - PT DOES,NOT KNOW [Unknown Provider]
Interventions
Interventions:
*Risk Screen - Suicide Last Done: 01/04/25 21:18
*General Assessment Last Done: 01/04/25 21:18
*Neglect/Abuse Screening Last Done: 01/04/25 21:18
*ED- Fall Risk Assessment Last Done: 01/04/25 21:18
*ED COVID-19 Vaccine History Last Done: 01/04/25 21:18
ED-Male Genitourinary Assessment Last Done: 01/04/25 21:18
Discharge Date and Time
Print Language: ARGENTINE
[2025-01-04 22:00] VITALS: BP 117/62
[2025-01-04 22:11] LABS: Hematocrit 34.0 % (39.0-52.0); Hemoglobin 11.2 g/dL (13.0-18.0); Mean Corp Hgb Conc. 32.9 g/dL (33.0-37.0); Mean Corpuscular Volume 94.7 fL (80.0-94.0); Red Cell Dist. Width 15.9 % (11.5-14.5)
[2025-01-04 22:12] LABS: ALT (SGPT) 81 U/L (0-50); AST (SGOT) 109 U/L (17-59); Albumin 3.8 g/dl (3.5-5.0); Alkaline Phosphatase 79 U/L (38-126); Blood Urea Nitrogen 33 mg/dl (9-20); Calcium 8.4 mg/dl (8.4-10.2); Carbon Dioxide 24 mmol/L (22-30); Chloride 105 mmol/L (98-107); Estimated Creatinine Clearance 56 ml/min; Glucose 124 mg/dl (70-99); Potassium 4.3 mmol/L (3.5-5.1); Sodium 134 mmol/L (135-145); Total Protein 6.8 g/dl (6.3-8.2); eGFR > 60.00
[2025-01-04 22:29] LABS: Nucleated Red Blood Cells % 0 % (-); Platelet Count 86 10^3/uL (130-400)
[2025-01-04] MEDS: ROCEPHIN 1000 MG IV (23:17)
[2025-01-04 23:18] VITALS: BP 118/66
[2025-01-04] MEDS: NSS 1000 IV (23:27)
--- NOTE | 2025-01-04 23:56 | HPS.HSE ---
Family Physician
-
Family Physician: Jeffery Arredondo
Chief Complaint
-
Shaking chills
History of Present Illness
Patient is a 74y M with PMH significant for ASCVD, DM and anoxic brain injury s/p prior cardiac arrest who presents to ED complaining of shaking chills this evening. History obtained from patient and discussion with ED staff. Patient complained
of urinary frequency about 3 days ago. He was seen at Urgent Care and started on doxycycline - has taken 6 doses thus far. He seemed to be feeling fairly well until this evening when he developed shaking chills at home. His home nurse brought him
to the ED for further evaluation and treatment.
Patient also was treated within the past few weeks with Keflex for cellulitis of the foot. This has resolved.
He denies any other complaints at present including headache, chest pain, dyspnea, abdominal pain, N/V/D, etc.
At the time of my examination patient is resting comfortably.
Medical History
Past Medical History
Past Medical History: Reports Other
Additional Past Medical History:
ASCVD
NIDDM
Hypertension
Depression/anxiety
Aortic stenosis
Hx anoxic brain injury s/p cardiac arrest 17 years ago
Hx DVT
Past Surgical History: Reports Other
Additional Past Surgical History:
Right Achilles repair
Cardiac cath
Social History
Tobacco: Non-smoker
Alcohol: None
Drug: None
Employment: Disabled
Family History
Family History: Other (Father: CAD, Sister x2: Breast cancer; Brother: DM,TIA, carotid stenosis )
Allergies / Home Medications
Allergies reflects when Allergies were last updated in [employer].
Home Medications with original date entered in [employer]
Allergy/Medication List:
Allergies
Allergy/AdvReac Type Severity Reaction Status Date / Time
Svacmip-VLW-FlY Reductase Allergy CAN TAKE Verified 01/04/25 20:16
Inhibitor (Cvcaqag-Foq-Sjt VYTORIN
Reductase Inhibitor)
Home Medications
albuterol sulfate 90 mcg/actuation aerosol inhaler 2 puff inhalation R Q6HPRN PRN sob 08/03/24
citalopram 20 mg tablet 30 mg PO DAILY Mental Health/Anxiety 08/03/24
ezetimibe 10 mg tablet 10 mg PO HS High Cholesterol 08/03/24
mecobalamin-levomefolate calcium-pyridoxal phos 2 mg-3 mg-35 mg tablet (Foltanx) 1 tab PO DAILY Supplement 08/03/24
memantine 10 mg tablet 10 mg PO BID Neurological Condition 08/03/24
metoprolol succinate 25 mg tablet,extended release 24 hr 12.5 mg PO DAILY Heart Disease/Condition 08/03/24
rosuvastatin 20 mg tablet 20 mg PO HS High Cholesterol 08/03/24
dapagliflozin propanediol 10 mg tablet 10 mg PO DAILY Heart disease/condition #30 tabs 08/07/24
furosemide 20 mg tablet 20 mg PO DAILY Fluid retention/Swelling #30 tabs 08/07/24
potassium chloride 20 mEq tablet,extended release(part/cryst) 20 meq PO DAILY Supplement #0 tabs 08/07/24
apixaban 2.5 mg tablet (Eliquis) 2.5 mg PO BID 01/04/25
Review of Systems
-
History Source: Patient
A 12 point ROS was completed and negative except as noted: Yes
Constitutional: Reports Chills; Denies Fever or Fatigue
EENT: Denies Sore Throat
Respiratory: Denies Cough or Trouble Breathing
Cardiac: Denies Chest Pain or Palpitations
Abdomen/GI: Denies Abdominal Pain, Nausea, Vomiting or Diarrhea
: Reports Frequency; Denies Dysuria or Flank Pain
Musculoskeletal: Denies Joint Pain or Edema
Neurological: Denies Dizzy or Headache
Physical Exam
Vital Signs
Vital Signs
Temp Pulse Resp BP Pulse Ox
98.1 F 80 18 118/66 96
01/04/25 23:30 01/04/25 20:16 01/04/25 20:16 01/04/25 23:18 01/04/25 23:19
Physical Exam
General: Other (74y M in no acute distress.)
HEENT: Moist mucous membranes and PERRLA
Respiratory: Clear; No Wheezes, Rales or Rhonchi
Cardiac: S1/S2, Regular Rhythm and Murmur (III/ REGULO)
GI: Soft, Non Tender, Non Distended and Normal Bowel Sounds
Musculoskeletal: No Clubbing, No Cyanosis and Other (Trace - 1+ edema b/l LEs.)
Neuro: Awake and Alert
Laboratory Results
-
01/04/25 21:47
01/04/25 21:47
Laboratory Results
Lactic Acid 1.0 mmol/L (0.7-2.0) 01/04/25 21:47
Total Bilirubin 1.9 mg/dl (0.2-1.3) H 01/04/25 21:47
AST 109 U/L (17-59) H 01/04/25 21:47
ALT 81 U/L (0-50) H 01/04/25 21:47
Alkaline Phosphatase 79 U/L (38-126) 01/04/25 21:47
Impression/Plan
-
A/P: Patient is a 74y M with PMH significant for anoxic brain injury s/p cardiac arrest, ASCVD and hypertension who presents to ED complaining of recent urinary symptoms and shaking chills this evening.
UTI / Prostatitis
- Admit for further evaluation and treatment.
- Failure of outpatient abx with 6 doses / 3 days of doxycycline.
- UA in the ED consistent with infection - follow-up culture data.
- CT done in the ED shows bladder wall thickening c/w cystitis. Also noted is edema of prostate - R > L concerning for prostatitis.
- Check PSA.
- IV Cipro for now for prostate penetration.
- Follow fever curve. Monitor for any new / worsening symptoms.
Liver Lesion
Abnormal LFTs
- CT scan shows round lesion in the R lobe of the liver. Recommend MRI with contrast for further evaluation.
- Mildly abnormal LFTs - ? due to recent abx use v liver abnormality v other.
- Check MRI as recommended.
Thrombocytopenia
- ? secondary to med effect / recent abx.
- Hold further doxycycline.
- Follow for changes in platelet counts.
- Monitor for any evidence of bleeding.
ASCVD
Aortic Stenosis
Chronic HFrEF
- Stable. Does not appear grossly volume overloaded at present.
- Continue current Lasix dosing.
- Continue other CV med regimen.
Anoxic Brain Injury
- Some degree of aphasia, but able to provide history, make needs known, etc.
- Has private nurse / home health aide.
Anxiety / Depression
- Continue Celexa. Check EKG for QTc.
History of DVT
DVT Prophylaxis
- Continue Eliquis.
Code Status: Full
[2025-01-05] VITALS: BP 110/64
[2025-01-05 01:15] VITALS: BMI 26.3
[2025-01-05 01:16] VITALS: BP 114/64
--- NOTE | 2025-01-05 01:39 | PTCARENOTE ---
Pt transferred to , AAOx2-3 at times disoriented to time. Pt stated it was 2022. Pt able to stand on scale and take few steps to bed. Bed alarm in place d/t pt recently falling at home last week. Safety measures in place,call ruby within reach.
[2025-01-05] MEDS: CIPRO 400 MG 200 IV ×2 (02:00→14:58)
[2025-01-05 02:43] LABS: PSA, Total - Screen 6.12 ng/ml (0.0-4.0)
[2025-01-05 05:03] VITALS: BMI 26.3
[2025-01-05 07:30] VITALS: BP 113/51
[2025-01-05 07:39] LABS: Hematocrit 33.2 % (39.0-52.0); Hemoglobin 11.1 g/dL (13.0-18.0); Mean Corp Hgb Conc. 33.4 g/dL (33.0-37.0); Mean Corpuscular Volume 95.4 fL (80.0-94.0); Platelet Count 79 10^3/uL (130-400); Red Cell Dist. Width 16.0 % (11.5-14.5)
[2025-01-05 08:20] LABS: Blood Urea Nitrogen 26 mg/dl (9-20); Calcium 7.9 mg/dl (8.4-10.2); Carbon Dioxide 22 mmol/L (22-30); Chloride 109 mmol/L (98-107); Estimated Creatinine Clearance 74 ml/min; Glucose 100 mg/dl (70-99); Potassium 4.0 mmol/L (3.5-5.1); Sodium 135 mmol/L (135-145); eGFR > 60.00
[2025-01-05] MEDS: TOPROL XL 12.5 MG PO (08:42)
[2025-01-05] MEDS: CELEXA 30 MG PO (08:42)
[2025-01-05] MEDS: ELIQUIS 2.5 MG PO ×2 (08:43→20:37)
[2025-01-05] MEDS: KCL 20 MEQ PO (08:43)
[2025-01-05] MEDS: NAMENDA 10 MG PO ×2 (08:43→20:37)
[2025-01-05] MEDS: LASIX 20 MG PO (08:43)
[2025-01-05] MEDS: NOVOLOG FLEXPEN-LOW RESISTANCE SC (09:03)
[2025-01-05 09:07] LABS: Glucose - Point of Care 118 mg/dl (70-99)
[2025-01-05 09:11] LABS: Glycohemoglobin (HgbA1c) 5.2 % (4.0-5.6)
[2025-01-05 12:32] LABS: Glucose - Point of Care 265 mg/dl (70-99)
[2025-01-05] MEDS: NOVOLOG FLEXPEN-LOW RESISTANCE 3 UNITS SC (13:00)
--- NOTE | 2025-01-05 13:35 | W.PN.HOSP.TC ---
Today's Communication/Plan
-
follow cultures
cont cipro
Assessment / Plan
Assessment / Plan
pt is a 74 year old male
UTI/Prostatitis--apparently failed outpt doxy--await cultures--cont IV cipro for now--- CT done in the ED shows bladder wall thickening c/w cystitis. Also noted is edema of prostate - R > L concerning for prostatitis--PSA 6--would repeat once
infection cleared
Liver Lesion/Abnormal LFTs- CT scan shows round lesion in the R lobe of the liver--await MRI
Pancytopenic-- ? secondary to med effect / recent abx-- Hold further doxycycline.
ASCVD/Aortic Stenosis/Chronic HFrEF-- Stable. Does not appear grossly volume overloaded at present-- Continue current Lasix dosing-- Continue other CV med regimen.
Anoxic Brain Injury-- Some degree of aphasia, but able to provide history, make needs known, etc-- Has private nurse / home health aide.
Anxiety/Depression- Continue Celexa. Check EKG for QTc.
History of DVT- Continue Eliquis.
Code Status-- Full
Anticipated Discharge: > 48 hours
Subjective/Interval History
-
Date of Service: January 05, 2025
pt nurse (home nurse) at bedside--he feels better
Objective Data
-
Labs:
Laboratory Results
01/05/25
07:03
WBC 4.7 L
Hgb 11.1 L
Hct 33.2 L
Plt Count 79 L
Sodium 135
Potassium 4.0
Chloride 109 H
Carbon Dioxide 22
BUN 26 H
Creatinine 0.9
Glucose 100 H
Calcium 7.9 L
Vital Signs:
max temp for 24 hours
01/04/25
20:16
Temp 98.6 F
Vital Signs
Temp Pulse Resp BP Pulse Ox
99 F 77 16 113/51 97
01/05/25 07:30 01/05/25 07:30 01/05/25 07:30 01/05/25 07:30 01/05/25 07:30
I&O
01/04/25 01/05/25 01/06/25
06:59 06:59 06:59
Intake Total 320 / 320
Output Total 300 / 300 250 / 250
Balance 20 / 20 -250 / -250
Review of Systems
-
All other systems: Reviewed and negative
Physical Exam
-
General: Well Developed, Well Nourished and No Apparent Distress
HEENT: Normocephalic and Atraumatic; Negative Oxygen
Respiratory: Clear to Auscultation; Negative Wheezes or Rhonchi
Cardiac: Regular Rhythm and S1/S2; Negative Murmur
GI: Soft, Nontender, Nondistended and Normal Bowel Sounds
Musculoskeletal: No Clubbing, No Cyanosis and No Edema
Neuro: Awake and Alert
Psych: Calm
--- NOTE | 2025-01-05 14:34 | CM ---
Patient seen at bedside on with physician. Patient has a nurse that stays with him 7:30-9pm and has other aides that also come daily. Patient caregiver Jojo Alvarado states that patient does a work out daily for an hour, chair yoga 3 x week
and that he goes out with her daily to shopping etc. Patient PCP is Dr. Savannah Paula and it is a new doctor to him from the same practice as previous. Patient uses the [facility] in [place]. Patient plan is for discharge home with no needs, per
caregiver she is a nurse so he does not need any VN supports at discharge. Patient does not use any DME. CM will continue to follow for discharge planning needs.
Plan; home with no needs.
[2025-01-05] MEDS: TYLENOL 650 MG PO (15:08)
[2025-01-05 15:25] VITALS: BP 104/75
--- NOTE | 2025-01-05 16:11 | PTCARENOTE ---
Pt returned from MRI. Developed rigors/chills shortly after coming back. Temp check a few times during episode - Tmax 99.1. Pt given tylenol. Symptoms resolved after 30 minutes.
[2025-01-05 17:12] LABS: Glucose - Point of Care 183 mg/dl (70-99)
[2025-01-05] MEDS: NOVOLOG FLEXPEN-LOW RESISTANCE 1 UNITS SC (17:34)
[2025-01-05 21:24] LABS: Glucose - Point of Care 189 mg/dl (70-99)
[2025-01-05] MEDS: ZETIA 10 MG PO (21:30)
[2025-01-05] MEDS: CRESTOR 20 MG PO (21:30)
[2025-01-05 23:18] VITALS: BP 105/58
[2025-01-06] MEDS: CIPRO 400 MG 200 IV ×2 (02:04→14:07)
[2025-01-06 05:38] VITALS: BMI 26.6
[2025-01-06 07:07] LABS: Hematocrit 32.7 % (39.0-52.0); Hemoglobin 10.9 g/dL (13.0-18.0); Mean Corp Hgb Conc. 33.3 g/dL (33.0-37.0); Mean Corpuscular Volume 94.5 fL (80.0-94.0); Nucleated Red Blood Cells % 0 % (-); Platelet Count 89 10^3/uL (130-400); Red Cell Dist. Width 16.0 % (11.5-14.5)
[2025-01-06 07:14] LABS: ALT (SGPT) 105 U/L (0-50); AST (SGOT) 117 U/L (17-59); Albumin 3.5 g/dl (3.5-5.0); Alkaline Phosphatase 73 U/L (38-126); Blood Urea Nitrogen 21 mg/dl (9-20); Calcium 7.9 mg/dl (8.4-10.2); Carbon Dioxide 24 mmol/L (22-30); Chloride 107 mmol/L (98-107); Estimated Creatinine Clearance 74 ml/min; Glucose 120 mg/dl (70-99); Magnesium 2.0 mg/dl (1.6-2.3); Potassium 4.0 mmol/L (3.5-5.1); Sodium 134 mmol/L (135-145); Total Protein 6.5 g/dl (6.3-8.2); eGFR > 60.00
[2025-01-06 07:30] VITALS: BP 98/45
[2025-01-06] MEDS: CELEXA 30 MG PO (08:01)
[2025-01-06] MEDS: ELIQUIS 2.5 MG PO ×2 (08:03→20:13)
[2025-01-06] MEDS: TOPROL XL 12.5 MG PO (08:03)
[2025-01-06] MEDS: KCL 20 MEQ PO (08:03)
[2025-01-06] MEDS: LASIX 20 MG PO (08:03)
[2025-01-06] MEDS: NAMENDA 10 MG PO ×2 (08:03→20:13)
[2025-01-06] MEDS: NOVOLOG FLEXPEN-LOW RESISTANCE SC (08:07)
[2025-01-06 08:08] LABS: Glucose - Point of Care 113 mg/dl (70-99)
[2025-01-06 12:15] LABS: Glucose - Point of Care 179 mg/dl (70-99)
[2025-01-06] MEDS: NOVOLOG FLEXPEN-LOW RESISTANCE 1 UNITS SC ×2 (12:15→17:40)
--- NOTE | 2025-01-06 14:26 | PN.CDI ---
CDI
- -
CDI:
Physician Documentation Request
Admit Date: 01/04/25 23:48
Dear Doctor Ange,
Please review the following and provide your response in the progress notes.
Clinical Indicators:
- RN skin assessments indicate Stage 1 bilateral heels pressure injury, POA
- heel foams placed and pillow elevation
Physician documentation of the type and location of wounds is required for compliant documentation. Based on the above clinical findings and your assessment, please provide the following in your progress note:
1. Location of the ulcer/wound, including laterality.
2. Type (etiology) of ulcer/wound:
- Diabetic ulcer
- Arterial (ischemic) ulcer
- Traumatic wound
- Pressure (decubitus) ulcer
- Other
Use of terms such as suspected, likely, concern for, or probable (associated with a specific diagnosis that is being evaluated, monitored, or treated as if it exists) are acceptable and can be coded in the inpatient setting, when documented at the
time of discharge.
Thank you,
Griffin Desouza RN
CDI Specialist
Please use your independent medical judgment in providing your response.
*Source: National Pressure Ulcer Advisory Panel (NPUAP)
--- NOTE | 2025-01-06 14:54 | CM ---
Patient seen at bedside with physician and patient nurse on . patient stated that he would like to have recommended biopsy as outpatient and patient nurse indicated that she would call for appointment with PCP for first available appointment
next week and follow up with outpatient biopsy. Patient nurse indicated that she did not feel he would need VN. Reviewed IMM and will complete with patient tomorrow am. CM will continue to follow for discharge planning needs.
Plan; home with no needs.
[2025-01-06 15:45] VITALS: BP 144/71
--- NOTE | 2025-01-06 16:54 | W.PN.HOSP.TC ---
Today's Communication/Plan
-
check EKG in AM
hopeful d/c in AM
Assessment / Plan
Assessment / Plan
pt is a 74 year old male
UTI/Prostatitis--apparently failed outpt doxy--urine culture with gm neg bacilli--was told Urgent care was Citrobacter--cont IV cipro for now, will switch to oral, check EKG in AM--- CT done in the ED shows bladder wall thickening c/w cystitis.
Also noted is edema of prostate - R > L concerning for prostatitis--PSA 6--would repeat once infection cleared
Liver Lesion/Abnormal LFTs- CT scan shows round lesion in the R lobe of the liver--MRI cannot say what it is...recommend biopsy--would arrange as outpt
Pancytopenic-- ? secondary to med effect / recent abx-- Hold further doxycycline.
ASCVD/Aortic Stenosis/Chronic HFrEF-- Stable. Does not appear grossly volume overloaded at present-- Continue current Lasix dosing-- Continue other CV med regimen.
Anoxic Brain Injury-- Some degree of aphasia, but able to provide history, make needs known, etc-- Has private nurse / home health aide.
Anxiety/Depression- Continue Celexa. Check EKG for QTc.
Stage 1 bilateral heels pressure injury, POA
History of DVT- Continue Eliquis.
Code Status-- Full
Anticipated Discharge: Within 24 hours
Subjective/Interval History
-
Date of Service: January 06, 2025
pt without c/o
Objective Data
-
Labs:
Laboratory Results
01/06/25
06:18
WBC 3.5 L
Hgb 10.9 L
Hct 32.7 L
Plt Count 89 L
Sodium 134 L
Potassium 4.0
Chloride 107
Carbon Dioxide 24
BUN 21 H
Creatinine 0.9
Glucose 120 H
Calcium 7.9 L
Total Bilirubin 1.5 H
AST 117 H
ALT 105 H
Alkaline Phosphatase 73
Vital Signs:
max temp for 24 hours
01/05/25
07:30
Temp 99 F
Vital Signs
Temp Pulse Resp BP Pulse Ox
97.6 F 76 16 144/71 98
01/06/25 15:45 01/06/25 15:45 01/06/25 15:45 01/06/25 15:45 01/06/25 15:45
I&O
01/05/25 01/06/25 01/07/25
06:59 06:59 06:59
Intake Total 320 / 320 120 / 120
Output Total 300 / 300 575 / 575
Balance 20 / 20 -455 / -455
Review of Systems
-
All other systems: Reviewed and negative
Physical Exam
-
General: Well Developed, Well Nourished and No Apparent Distress
HEENT: Normocephalic and Atraumatic; Negative Oxygen
Respiratory: Clear to Auscultation; Negative Wheezes, Rales, Rhonchi or Crackles
Cardiac: Regular Rhythm and S1/S2; Negative Murmur
GI: Soft, Nontender, Nondistended and Normal Bowel Sounds
Musculoskeletal: No Clubbing, No Cyanosis and No Edema
Neuro: Awake
Psych: Calm
[2025-01-06 17:39] LABS: Glucose - Point of Care 175 mg/dl (70-99)
[2025-01-06 21:51] LABS: Glucose - Point of Care 237 mg/dl (70-99)
[2025-01-06] MEDS: ZETIA 10 MG PO (22:14)
[2025-01-06] MEDS: CRESTOR 20 MG PO (22:14)
[2025-01-06 23:47] VITALS: BP 129/90
[2025-01-07] MEDS: CIPRO 400 MG 200 IV (02:06)
[2025-01-07 06:00] VITALS: BMI 26.9
[2025-01-07 07:25] VITALS: BP 114/64
[2025-01-07] MEDS: TOPROL XL 12.5 MG PO (07:55)
[2025-01-07] MEDS: NAMENDA 10 MG PO (07:55)
[2025-01-07] MEDS: ELIQUIS 2.5 MG PO (07:56)
[2025-01-07] MEDS: CELEXA 30 MG PO (07:56)
[2025-01-07] MEDS: KCL 20 MEQ PO (07:56)
[2025-01-07] MEDS: LASIX 20 MG PO (07:57)
[2025-01-07 08:08] LABS: Glucose - Point of Care 113 mg/dl (70-99)
[2025-01-07] MEDS: NOVOLOG FLEXPEN-LOW RESISTANCE SC (08:10)
[2025-01-07 11:54] LABS: Glucose - Point of Care 241 mg/dl (70-99)
[2025-01-07] MEDS: NOVOLOG FLEXPEN-LOW RESISTANCE 2 UNITS SC (12:49)
[2025-01-07] MEDS: CIPRO 400 MG IV (14:49)
[2025-01-07] MEDS: BACTRIM DS 800 MG/160 MG 1 TABLET PO (15:10)
--- NOTE | 2025-01-07 15:25 | W.PN.HOSP.TC ---
Today's Communication/Plan
-
d/c
Assessment / Plan
Assessment / Plan
pt is a 74 year old male
UTI/Prostatitis--apparently failed outpt doxy--urine culture with Citrobacter--was told Urgent care was Citrobacter--change IV cipro to bactrim--- CT done in the ED shows bladder wall thickening c/w cystitis. Also noted is edema of prostate - R > L
concerning for prostatitis--PSA 6--would repeat once infection cleared--follow up with urology
Liver Lesion/Abnormal LFTs- CT scan shows round lesion in the R lobe of the liver--MRI cannot say what it is...recommend biopsy--would arrange as outpt
Pancytopenic-- ? secondary to med effect / recent abx-- Hold further doxycycline.
ASCVD/Aortic Stenosis/Chronic HFrEF-- Stable. Does not appear grossly volume overloaded at present-- Continue current Lasix dosing-- Continue other CV med regimen.
Anoxic Brain Injury-- Some degree of aphasia, but able to provide history, make needs known, etc-- Has private nurse / home health aide.
Anxiety/Depression- Continue Celexa. Check EKG for QTc.
Stage 1 bilateral heels pressure injury, POA
History of DVT- Continue Eliquis.
Code Status-- Full
Anticipated Discharge: Today
Subjective/Interval History
-
Date of Service: January 07, 2025
pt waiting for d/c
Objective Data
-
Vital Signs:
max temp for 24 hours
01/06/25
23:47
Temp 98.9 F
Vital Signs
Temp Pulse Resp BP Pulse Ox
98.8 F 74 16 114/64 98
01/07/25 07:25 01/07/25 07:25 01/07/25 07:25 01/07/25 07:01/07/25 07:25
I&O
01/06/25 01/07/25 01/08/25
06:59 06:59 06:59
Intake Total 120 / 120 800 / 800
Output Total 575 / 575 425 / 425
Balance -455 / -455 375 / 375
Review of Systems
-
All other systems: Reviewed and negative
Physical Exam
-
General: Well Developed, Well Nourished and No Apparent Distress
HEENT: Normocephalic and Atraumatic; Negative Oxygen
Respiratory: Clear to Auscultation and Wheezes; Negative Rhonchi
Cardiac: Regular Rhythm and S1/S2; Negative Murmur
GI: Soft, Nontender, Nondistended and Normal Bowel Sounds
Musculoskeletal: No Clubbing, No Cyanosis and No Edema
Neuro: Awake and Alert
Psych: Calm
[2025-01-07 15:35] VITALS: BP 126/62
--- NOTE | 2025-01-07 16:59 | W.DCSUMMARY ---
Discharge Summary
Discharge Data
Date of Admission: 01/04/25
Date of Discharge: 01/07/25
-
Pending Results: No
Hospital Course
Primary care physician : Jeffery Arredondo
Principal Discharge diagnosis : Citrobacter urinary tract infection and prostatitis, abnormal liver lesion noted
Chronic Discharge diagnosis : Pancytopenia, chronic heart failure with reduced ejection fraction without exacerbation, anoxic brain injury, anxiety/depression, stage I bilateral heel pressure injury
Hospital Course : Patient is a 74-year-old male with a history of anoxic brain injury status post a prior cardiac arrest years ago who presented with shaking chills on the evening of admission. He complained of urinary frequency about 3 days prior
and was seen in urgent care and started on doxycycline. He took 6 doses of that but still developed shaking chills at home. He does have a home nurse who brought him to the ED for evaluation and treatment. Patient was admitted.
Problem #1: Citrobacter urinary tract infection and prostatitis. Patient was admitted and placed on IV Rocephin. Results from the urgent care did come back with the Citrobacter as the bacteria. Urine culture was obtained here as well as blood
cultures. Urine culture here confirms Citrobacter and patient was changed from IV Rocephin to trimethoprim/sulfamethoxazole (Bactrim). Blood cultures remained negative. His PSA was 6 and he did have some inflammation of his prostate on the CAT
scan. He was referred to urology as an outpatient.
Problem #2: Abnormal liver lesion noted. Patient was noted to have an abnormal mole liver lesion on CAT scan done in the emergency department. MRI was recommended. MRI was done which showed prominent hepatic lesion and a smaller secondary lesion
for which they recommend biopsy. I did speak to the patient and his caregiver regarding these findings. Because he is on Eliquis, it is reasonable to have this done as an outpatient with a scheduled start time and scheduled time to hold his
Eliquis. They will be discussing this with his primary care physician next week on follow-up.
Problem #3: All other medical issues. These include Pancytopenia, chronic heart failure with reduced ejection fraction without exacerbation, anoxic brain injury, anxiety/depression, stage I bilateral heel pressure injury. These medical issues were
stable during his hospitalization. Medications were continued as able.
Patient is stable for discharge home at this time. If there are any questions regarding this dictation or his hospital stay, please do not hesitate to call. Our office number is [phone].
Time for discharge 31 minutes.
Important imaging findings :
CT SCAN ABDOMEN/PELVIS IMPRESSION: Minimal posterior right pleural effusion with mild dependent atelectasis. No evidence for left pleural effusion.
Bladder wall appears mildly diffusely thickened with slight stranding of the surrounding fat, findings suggestive of cystitis. Small left posterolateral bladder diverticulum.
There is enhancement of the right side of the prostate gland, nonspecific, with main differential considerations of prostatitis and prostatic neoplasm/cancer. Consider correlation with PSA value.
No CT evidence for pyelonephritis.
Cholelithiasis. No CT findings that would be considered highly suggestive of acute cholecystitis. No evidence for biliary ductal dilation.
Liver has cirrhotic morphology. Round lesion within the superior right lobe of the liver, most likely focal nodular hyperplasia, but not definitively characterized. Further evaluation is advised, probably best performed with MRI of the abdomen
without and with contrast, utilizing Eovist contrast agent.
Mild splenomegaly.
No evidence for ascites.
Bony degenerative changes as described.
ABDOMEN MRI IMPRESSION:
Limited by motion degradation.
Prominent 2 cm hepatic lesion with additional smaller 8.5 mm lesion. Signal intensity and enhancement features are nonspecific. Possible hepatocellular carcinoma cannot be excluded (LR4), though no ancillary features of cirrhosis. Other possible
considerations may include metastatic disease (LR-M), or some dysplastic nodules. May also consider the possibility of fibrolamellar hepatocellular carcinoma (though typically in younger patients). Recommend biopsy.
No hydronephrosis. Medullary T2 hyperintensity demonstrated, bilaterally. Possibly related to excretion of CT IV contrast from the previous evening. Recommend correlation with renal function tests.
Collapsed gallbladder. Cholelithiasis.
Discharge Plan
-
Patient Disposition: Home (Routine Discharge)
Discharge Diagnosis/Procedures: Urinary tract infection with prostatitis, abnormal liver lesion, pancytopenia, chronic heart failure with reduced ejection fraction without exacerbation, anoxic brain injury, anxiety/diabetes, stage I bilateral heel
pressure injury present on admission, history of DVT
Condition: Good
Diet: As tolerated and Regular
Activity: As tolerated
Driving Restrictions: As prior to admission
Bathing Restrictions: None
Activity Restrictions/Additional Instructions:
follow up with your outpt UROLOGIST in 2-3 weeks
Referrals:
Jeffery Arredondo MD [Family Provider, [facility]] - in less than 1 week
Prescriptions:
New
sulfamethoxazole-trimethoprim 800-160 mg Tablet
1 tab PO BID 7 Days Qty: 14 0RF
acetaminophen 325 mg Tablet
650 mg PO Q4HPRN PRN (Reason: Mild Pain / Temp > 101) Qty: 0 0RF
Continued
citalopram 20 mg Tablet
30 mg PO DAILY
metoprolol succinate 25 mg Tablet Extended Release 24 Hr
12.5 mg PO DAILY
albuterol sulfate 90 mcg/actuation Hfa Aerosol Inhaler
2 puff INHALATION R Q6HPRN PRN (Reason: sob)
ezetimibe 10 mg Tablet
10 mg PO HS
rosuvastatin 20 mg Tablet
20 mg PO HS
memantine 10 mg Tablet
10 mg PO BID
mecobal-levomefolat Ca-B6 phos [Foltanx] 2-3-35 mg Tablet
1 tab PO DAILY
dapagliflozin propanediol 10 mg Tablet
10 mg PO DAILY Qty: 30 0RF
furosemide 20 mg Tablet
20 mg PO DAILY Qty: 30 0RF
Eliquis 2.5 mg Tablet
2.5 mg PO BID Qty: 0 0RF
Held
potassium chloride 20 mEq Tablet,Er Particles/Crystals
20 meq PO DAILY Qty: 0 0RF
Hold Instructions: do NOT take while you are on the Bactrim Antibiotic
Discharge Orders:
Discharge Patient (As Directed); Ordered 01/07/25
Ordered By: Ila Cassidy
Discharge Date and Time
Discharge Date/Time: 01/07/25 16:31
Print Language: [place]
== END 2025-01-07 16:31 | disposition home or self-care (01) | DRG 728 ==
LOC: 4 WEST ACU 23:48
PROVIDERS: Physician Assistant; ADMITTING PHYSICIAN Hospitalist; ATTENDING PHYSICIAN Internal Medicine; EMERGENCY PHYSICIAN Emergency Medicine; FAMILY PHYSICIAN Family Medicine
DX: N41.9 Inflammatory disease of prostate, unspecified (principal); N39.0 Urinary tract infection, site not specified; G93.1 Anoxic brain damage, not elsewhere classified; I50.22 Chronic systolic (congestive) heart failure; D61.818 Other pancytopenia; R47.01 Aphasia; I11.0 Hypertensive heart disease with heart failure; F32.A Depression, unspecified; F41.9 Anxiety disorder, unspecified; R41.3 Other amnesia; K76.9 Liver disease, unspecified; D69.6 Thrombocytopenia, unspecified; E11.9 Type 2 diabetes mellitus without complications; L89.621 Pressure ulcer of left heel, stage 1; L89.611 Pressure ulcer of right heel, stage 1; I25.10 Atherosclerotic heart disease of native coronary artery without angina pectoris; I35.0 Nonrheumatic aortic (valve) stenosis; B96.89 Other specified bacterial agents as the cause of diseases classified elsewhere; N32.3 Diverticulum of bladder; K80.20 Calculus of gallbladder without cholecystitis without obstruction; Z86.718 Personal history of other venous thrombosis and embolism; Z86.74 Personal history of sudden cardiac arrest; Z82.49 Family history of ischemic heart disease and other diseases of the circulatory system; Z82.3 Family history of stroke; Z83.3 Family history of diabetes mellitus; Z80.3 Family history of malignant neoplasm of breast; Z88.8 Allergy status to other drugs, medicaments and biological substances; Z79.01 Long term (current) use of anticoagulants
CPT/HCPCS: 74177; 74183; 80048; 80053; 81003; 81015; 82962; 83036; 83605; 83735; 85025; 85027; 87040; 87077; 87086; 87186; 93005; 96361; 96374; 99284; A9581; G0103; Q9967